=== PATIENT | female | born 1995 | race Caucasian/White ===

== ENCOUNTER 2018-01-25 12:36 | Outpatient (REF) | payer MEDICAID, SELFPAY ==
[2018-01-25 13:55] LABS: *AMPHETAMINES SCREEN URINE Negative (Negative); *BARBITURATES SCREEN URINE Negative (Negative); *BENZODIAZEPINES SCREEN URINE Negative (Negative); Cannabinoids THC Negative (Negative); Cocaine Screen,Urine Negative (Negative); METHADONE URINE SCREEN Negative (Negative); OPIATES URINE SCREEN Negative (Negative)
[2018-01-25 13:59] LABS: Tricyclic Antidepressants Negative (Negative)
[2018-01-29 03:39] LABS: Buprenorphine Negative; Norbuprenorphine Negative
== END 2018-01-25 12:56 ==
LOC: LBN 12:36
PROVIDERS: PCP Nurse Practitioner Family; Visit Provider Advanced Practice Midwife
DX: Z34.91 Encounter for supervision of normal pregnancy, unspecified, first trimester (principal)
CPT/HCPCS: 80307; 87086

== ENCOUNTER 2018-01-26 11:02 | Outpatient (CLI) | payer MEDICAID, SELFPAY ==
[2018-01-26 11:39] LABS: HCT 35.7 % (36.0-46.0); HGB 12.1 g/dL (12.0-15.5); Mean Corp. HGB Concentration 33.9 g/dL (32.0-36.0); Mean Corpuscular Hemoglobin 28.9 pg (27.0-33.0); Mean Corpuscular Volume 85.4 fL (80-95); Mean Platelet Volume 10.9 fL (8.0-11.0); Platelet Count 248 x1000/uL (130-400); RBC 4.18 m/cumm (4.00-5.20); RBC Distribution Width 14.3 % (11.7-14.6); White Blood Cell Count 7.47 k/cumm (4.4-10.8)
[2018-01-26 11:49] LABS: Glucose,1 Hr (Glucola) 95 mg/dL (80-140)
[2018-01-26 13:02] LABS: FREE T4 0.84 ng/dL (0.76-1.46)
[2018-01-27 10:18] LABS: Hepatitis B Surface Ag Negative (NEGAT)
[2018-01-27 10:35] LABS: Hepatitis C Ab w Rflx HCV PCR Negative (NEGAT)
[2018-01-27 13:58] LABS: Syphilis Serology (RPR) Negative (Negative)
[2018-01-27 14:01] LABS: Rubella IgG Ab (UVM) Positive; Varicella IgG Antibody Negative
[2018-01-28 10:27] LABS: HIV-1/2 Ag & Ab Screen Negative (NEGAT)
== END 2018-01-26 11:22 ==
PROVIDERS: Obstetrics & Gynecology; Obstetrics & Gynecology Gynecology; PCP Nurse Practitioner Family; Visit Provider Advanced Practice Midwife
DX: Z34.91 Encounter for supervision of normal pregnancy, unspecified, first trimester (principal); Z11.59 Encounter for screening for other viral diseases; Z11.4 Encounter for screening for human immunodeficiency virus [HIV]; Z11.3 Encounter for screening for infections with a predominantly sexual mode of transmission; Z01.84 Encounter for antibody response examination
CPT/HCPCS: 36415; 82950; 85027; 86787; 86803; 86850; 86900; 86901; 87340; 87389; 84439; 84443; 86592; 86762

== ENCOUNTER 2018-02-27 15:17 | Outpatient (REF) | payer MEDICAID, SELFPAY ==
[2018-02-28 15:21] LABS: Chlamydia Result Negative; GC Result Negative; Specimen Description URINE
== END 2018-02-27 15:37 ==
LOC: LBN 15:17
PROVIDERS: PCP Nurse Practitioner Family; Visit Provider Advanced Practice Midwife
DX: Z34.91 Encounter for supervision of normal pregnancy, unspecified, first trimester (principal); Z11.3 Encounter for screening for infections with a predominantly sexual mode of transmission
CPT/HCPCS: 87491; 87591

== ENCOUNTER 2018-03-10 01:17 | Outpatient (CLI) | payer MEDICAID, SELFPAY ==
--- NOTE | 2018-03-10 12:58 | DI.US_ITS ---
Many abnormalities cannot be diagnosed. A normal exam does not exclude a congenital anomaly. Radiology No. LMP: Exam Date: 03/10/18 [facility] wks days on EDC ([facility]) 08/11/18 Confirmed: HISTORY: SURVEY, Z34.90 ---- PREDICTED GESTATIONAL AGE NUMBER 18.0 weeks with a range of 17.0 week to 19.0 weeks. 1 Determined by___1STUS___LMP_X__HISTORY Info. pertaining to fetus # PLACENTA PRESENTATION Grade I Cephalic___ Anterior___Posterior_X__ Breech____ Right Left Transverse(head right___ Fundal___Low-lying___Previa___ Transverse(head left___ Varying__X____ BIOMETRY AMNIOTIC FLUID BPD: 41 mm 18.3 weeks Normal HC: 155 mm 18.3 weeks AC: 125 mm 18.1 weeks FL: 27 mm 18.1 weeks AMNIOTIC FLUID INDEX >26 WK CRL: mm weeks Cisterna Magna: 5 mm CI: 79 RUQ: LUQ Cerebellum: 1.8 cm EFW: 227 grams Percentile RLQ: LLQ Total: cms Composite AGE= 18.2 wks EDC by US____08/09/18 BIOPHYSICAL PROFILE ANATOMY IDENTIFIED SCORE 0/2 Heart: 4-Chamber__X_Rate:BPM___150__ LVOT: X____ RVOT: X__ Amniotic Fluid(>2cms)____ Stomach:___X____ Kidneys: X__ Respirations (>30 secs) Bladder:____X____ Post. Fossa: X Body Flex/Extension 3 vessel cord:____X___Ventricles: X cord insertion:___X__ Lips:__X__ Extremity Flex/Extension spinal morphology: X___Nose:X Total Score= Palate:___X____ NS=not seen There is a single living intrauterine gestation. Estimated sonographic age is 18 weeks 2 days. No abnormalities were identified. The fetus was in varying positions during the examination. heart rate is 150 beats per minute. Amniotic fluid index is within normal limits visually. The placenta is posterior without evidence of previa. Note is made of maternal lakes within the placenta. IMPRESSION: Single living intrauterine gestation. Estimated sonographic age is 18 weeks 2 days.
== END 2018-03-10 01:37 ==
PROVIDERS: PCP Nurse Practitioner Family; Visit Provider Advanced Practice Midwife
DX: Z34.92 Encounter for supervision of normal pregnancy, unspecified, second trimester (principal)
CPT/HCPCS: 76805

== ENCOUNTER 2018-05-23 10:24 | Outpatient (CLI) | payer MEDICAID, SELFPAY ==
[2018-05-23 11:09] LABS: Glucose,1 Hr (Glucola) 130 mg/dL (80-140)
[2018-05-23 11:27] LABS: HCT 32.6 % (36.0-46.0); HGB 10.8 g/dL (12.0-15.5); Mean Corp. HGB Concentration 33.1 g/dL (32.0-36.0); Mean Corpuscular Hemoglobin 29.4 pg (27.0-33.0); Mean Corpuscular Volume 88.8 fL (80-95); Mean Platelet Volume 11.3 fL (8.0-11.0); Platelet Count 267 x1000/uL (130-400); RBC 3.67 m/cumm (4.00-5.20); White Blood Cell Count 14.65 k/cumm (4.4-10.8)
== END 2018-05-23 10:44 ==
PROVIDERS: PCP Nurse Practitioner Family; Visit Provider Advanced Practice Midwife
DX: Z34.93 Encounter for supervision of normal pregnancy, unspecified, third trimester (principal); Z01.84 Encounter for antibody response examination
CPT/HCPCS: 36415; 82950; 85027; 86850; 90384

== ENCOUNTER 2018-05-29 10:06 | Emergency (ER) | payer MEDICAID, SELFPAY ==
[2018-05-29 10:19] VITALS: BP 110/64; PULSE 115; RESP 18; TEMP 36.8; O2SAT 97
--- NOTE | 2018-05-29 10:25 | W.ED.GENAD ---
Discharge Plan Disposition Patient Disposition: HOME Condition: Improving Discharge Details Chief Complaint: FacialProb Clinical Impression: Cellulitis of face Primary Care Provider: None,None ED Provider: Jf Pennington Home Meds and New Rx's Prescriptions: New clindamycin HCl 300 mg capsule 300 mg PO TID Qty: 21 RF: 0 Continued prenat.vits,nori,sel-qyfz-nvvhc tablet 1 tab PO DAILY Qty: 90 RF: 3 RhoGAM Ultra-Filtered PLUS 1,500 unit (300 mcg) syringe 1,500 unit IM ONCE Qty: 1 RF: 0 ferrous gluconate [Ferate] 240 mg (27 mg iron) tablet 240 mg PO DAILY Qty: 90 RF: 1 Discharge Instructions Instructions: Cellulitis (ED) Additional Instructions: Please take antibiotics as prescribed. Apply warm, moist heat to area to speed healing. May use Tylenol if needed for discomfort. Return for worsening or any other acute concerns. Routine care with your TRANS ROUTER as scheduled. Medical Decision Making 23-year-old female who is 29 weeks presents with left facial swelling over 1 days time after being scratched in the face. She has evidence of developing cellulitis but not of abscess. Will place on clindamycin, patient stable for outpatient management. She may use heat to speed healing. She understands return precautions. HPI General Mode of arrival: ambulatory. Date/Time Provider Initiated Documentation: 05/29/18 10:08. Limitations to Documentation: no limitations. Information obtained by: patient. History of Present Illness 23 year old F presents to the emergency department with the chief complaint of Left facial swelling times 1 day, began after scratch, described as moderate, Quality is described as aching, and is localized to the face and left. Patient reports no radiation. Patient started experiencing this hour(s) and it has been constant. No relieving factors improve symptom(s), No exacerbating factors reported . Patient notes no other symptoms.; denies fever/chills. Patient did receive the following treatments prior to arrival, none Related Data Home Medications Medication Instructions Recorded Confirmed 1 tab PO DAILY #90 tab 12/15/17 05/23/18 vitamin,calcium,nyfpmwld-zfdo-hcsxn acid tablet ferrous gluconate 240 mg (27 mg 240 mg PO DAILY #90 tab 05/23/18 05/23/18 iron) tablet clindamycin HCl 300 mg PO TID #21 cap 05/29/18 Previous Rx's Medication Instructions Recorded 1 tab PO DAILY #90 tab 12/15/17 vitamin,calcium,gslkudkb-vhgm-asvlj acid tablet ferrous gluconate 240 mg (27 mg 240 mg PO DAILY #90 tab 05/23/18 iron) tablet clindamycin HCl 300 mg PO TID #21 cap 05/29/18 Allergies Allergy/AdvReac Type Severity Reaction Status Date / Time Penicillins Allergy Severe Anaphylaxsi Unverified 05/23/18 10:59 s strawberry Allergy Intermediate Swelling/Ed Unverified 05/29/18 10:21 winter General Stated Complaint: FacialProb FERDINAND: 3 Review of Systems Review of Systems 6 systems reviewed and otherwise neg [facility] Medical History ADHD (attention deficit hyperactivity disorder) bipolar Surgical History section (04/08/17) Tonsillectomy Family History Grandmother Neoplasm Mother Heart disease Brother No problems noted. Social History Smoking and Tabacco status: Current every day (1 ppd, declines cessation assistance) alcohol intake: former substance use type: does not use Female Reproductive History Menstrual control method: pills History History 2 Para 1 Hx # Term Pregnancies 1 Multiple births 0 Hx # Pregnancies 0 Ectopic pregnancies 0 AB induced 0 Hx Number of Living Children 1 AB spontaneous 0 Exam Narrative Exam Narrative: GEN: awake, alert, oriented 3. Pleasant, well groomed, interactive. HEAD: Normocephalic, atraumatic ENT: Mucous membranes moist, oropharynx unremarkable, External ear exam unremarkable. Left nasal labial fold tender with discrete area of discomfort. No significant fluctuance. No overlying erythema EYES: PERRL, EOMI NECK: Full ROM, no SHAY, no menigismus CHEST/RESP: Nontender, clear to auscultation bilateral, no wheeze/rhonchi/rales CARDIOVASCULAR: RRR, no murmur, rub emilia. 2+ Rad pulse bilateral ABDOMEN: Soft, nontender, gravid. +Bowel sounds EXT: Full ROM, no edema, no rash Neuro: Grossly normal neurologic exam, conversant, interactive. Psych: Speech fluent, thoughts congruent, affect normal Course Vital Signs Temperature 36.8 C 05/29/18 10:19 Pulse 115 H 05/29/18 10:19 Respiratory Rate 18 05/29/18 10:19 Blood Pressure 110/64 05/29/18 10:19 Pulse Oximetry 97 05/29/18 10:19 Temperature 36.8 C 05/29/18 10:19 Temperature Source Skin 05/29/18 10:19 Pulse 115 H 05/29/18 10:19 Respiratory Rate 18 05/29/18 10:19 Blood Pressure 110/64 05/29/18 10:19 Pulse Oximetry 97 05/29/18 10:19 Oxygen Delivery Method Room Air 05/29/18 10:19 Oxygen Flow Rate 0 05/29/18 10:19 Pain Level 9 05/29/18 10:19
--- NOTE | 2018-05-29 10:28 | ED.GENADUL_ITS ---
Discharge Plan Disposition Patient Disposition: HOME Condition: Improving Discharge Details Chief Complaint: FacialProb Clinical Impression: Cellulitis of face Primary Care Provider: None,None ED Provider: Jf Pennington Home Meds and New Rx's Prescriptions: New clindamycin HCl 300 mg capsule 300 mg PO TID Qty: 21 RF: 0 Continued prenat.vits,nori,qiu-vmkc-edpvf tablet 1 tab PO DAILY Qty: 90 RF: 3 RhoGAM Ultra-Filtered PLUS 1,500 unit (300 mcg) syringe 1,500 unit IM ONCE Qty: 1 RF: 0 ferrous gluconate [Ferate] 240 mg (27 mg iron) tablet 240 mg PO DAILY Qty: 90 RF: 1 Discharge Instructions Instructions: Cellulitis (ED) Additional Instructions: Please take antibiotics as prescribed. Apply warm, moist heat to area to speed healing. May use Tylenol if needed for discomfort. Return for worsening or any other acute concerns. Routine care with your [employer]BILE [employer] CUSTOMIZER as scheduled. Medical Decision Making 23-year-old female who is 29 weeks presents with left facial swelling over 1 days time after being scratched in the face. She has evidence of developing cellulitis but not of abscess. Will place on clindamycin, patient stable for outpatient management. She may use heat to speed healing. She understands return precautions. HPI General Mode of arrival: ambulatory . Date/Time Provider Initiated Documentation: 05/29/18 10:08 . Limitations to Documentation: no limitations . Information obtained by: patient . History of Present Illness 23 year old F presents to the emergency department with the chief complaint of Left facial swelling times 1 day, began after scratch, described as moderate, Quality is described as aching, and is localized to the face and left. Patient reports no radiation. Patient started experiencing this hour(s) and it has been constant. No relieving factors improve symptom(s), No exacerbating factors reported . Patient notes no other symptoms.; denies fever/chills. Patient did receive the following treatments prior to arrival, none Related Data Home Medications Medication Instructions Recorded Confirmed 1 tab PO DAILY #90 tab 12/15/17 05/23/18 vitamin,calcium,uswkodzp-igkm-agnlv acid tablet ferrous gluconate 240 mg (27 mg 240 mg PO DAILY #90 tab 05/23/18 05/23/18 iron) tablet clindamycin HCl 300 mg PO TID #21 cap 05/29/18 Previous Rx's Medication Instructions Recorded 1 tab PO DAILY #90 tab 12/15/17 vitamin,calcium,shwshayq-tcve-fuzku acid tablet ferrous gluconate 240 mg (27 mg 240 mg PO DAILY #90 tab 05/23/18 iron) tablet clindamycin HCl 300 mg PO TID #21 cap 05/29/18 Allergies Allergy/AdvReac Type Severity Reaction Status Date / Time Penicillins Allergy Severe Anaphylaxsi Unverified 05/23/18 10:59 s strawberry Allergy Intermediate Swelling/Ed Unverified 05/29/18 10:21 winter General Stated Complaint: FacialProb FERDINAND: 3 Review of Systems Review of Systems 6 systems reviewed and otherwise neg [facility] Medical History ADHD (attention deficit hyperactivity disorder) bipolar Surgical History section (04/08/17) Tonsillectomy Family History Grandmother Neoplasm Mother Heart disease Brother No problems noted. Social History Smoking and Tabacco status: Current every day (1 ppd, declines cessation assistance) alcohol intake: former substance use type: does not use Female Reproductive History Menstrual control method: pills History History 2 Para 1 Hx # Term Pregnancies 1 Multiple births 0 Hx # Pregnancies 0 Ectopic pregnancies 0 AB induced 0 Hx Number of Living Children 1 AB spontaneous 0 Exam Narrative Exam Narrative: GEN: awake, alert, oriented 3. Pleasant, well groomed, inte ractive. HEAD: Normocephalic, atraumatic ENT: Mucous membranes moist, oropharynx unremarkable, External ear exam unremarkable. Left nasal labial fold tender with discrete area of discomfort. No significant fluctuance. No overlying erythema EYES: PERRL, EOMI NECK: Full ROM, no SHAY, no menigismus CHEST/RESP: Nontender, clear to auscultation bilateral, no wheeze/rhonchi/rales CARDIOVASCULAR: RRR, no murmur, rub emilia. 2+ Rad pulse bilateral ABDOMEN: Soft, nontender, gravid. +Bowel sounds EXT: Full ROM, no edema, no rash Neuro: Grossly normal neurologic exam, conversant, interactive. Psych: Speech fluent, thoughts congruent, affect normal Course Vital Signs Temperature 36.8 C 05/29/18 10:19 Pulse 115 H 05/29/18 10:19 Respiratory Rate 18 05/29/18 10:19 Blood Pressure 110/64 05/29/18 10:19 Pulse Oximetry 97 05/29/18 10:19 Temperature 36.8 C 05/29/18 10:19 Temperature Source Skin 05/29/18 10:19 Pulse 115 H 05/29/18 10:19 Respiratory Rate 18 05/29/18 10:19 Blood Pressure 110/64 05/29/18 10:19 Pulse Oximetry 97 05/29/18 10:19 Oxygen Delivery Method Room Air 05/29/18 10:19 Oxygen Flow Rate 0 05/29/18 10:19 Pain Level 9 05/29/18 10:19
== END 2018-05-29 10:34 | disposition home or self-care (01) ==
PROVIDERS: Emergency Provider Emergency Medicine
DX: S00.81XA Abrasion of other part of head, initial encounter (principal); X58.XXXA Exposure to other specified factors, initial encounter; L03.211 Cellulitis of face; Z33.1 Pregnant state, incidental; Z3A.29 29 weeks gestation of pregnancy; O99.333 Smoking (tobacco) complicating pregnancy, third trimester; F17.210 Nicotine dependence, cigarettes, uncomplicated
CPT/HCPCS: 99283

== ENCOUNTER 2018-05-31 14:12 | Emergency (ER) | payer MEDICAID, SELFPAY ==
[2018-05-31 14:15] VITALS: BP 115/59; PULSE 133; RESP 20; TEMP 36.4; O2SAT 100
--- NOTE | 2018-05-31 14:35 | W.ED.GENAD ---
Discharge Plan Disposition Patient Disposition: HOME Condition: Improving Discharge Details Chief Complaint: Cellulitis Clinical Impression: Dental abscess Primary Care Provider: None,None ED Provider: German Alfredo Home Meds and New Rx's Prescriptions: New clindamycin HCl [Cleocin HCl] 150 mg capsule 150 mg PO TID Qty: 15 RF: 0 Continued RhoGAM Ultra-Filtered PLUS 1,500 unit (300 mcg) syringe 1,500 unit IM ONCE Qty: 1 RF: 0 ferrous gluconate [Ferate] 240 mg (27 mg iron) tablet 240 mg PO DAILY Qty: 90 RF: 1 clindamycin HCl 300 mg capsule 300 mg PO TID Qty: 21 RF: 0 Discharge Instructions Instructions: Dental Abscess (ED) Additional Instructions: If you note any worsening of symptoms you should return immediately to the emergency department otherwise if you do not see any signs of improvement after 48 hours you should also return for reassessment.. Take your antibiotic as prescribed and until they are fully gone. Please use salt water gargles and rinses 4 times a day for the next 3 days and follow-up with a dentist within the next week for reassessment. Referrals: Primary Care Provider [Outside] (If you are unable to follow-up with a dentist in the next week please follow-up with your primary care provider for reassessment) Medical Decision Making Patient presenting the emergency department for chief complaint of facial swelling. Patient states that this started 3 days ago and was seen in the emergency department. At that time she was diagnosed with facial cellulitis placed on clindamycin. Patient states over the last 24 hours that she has had significant worsening of pressure and swelling to her face. She does state some associated dental pain. Upon physical exam patient has significant swelling to the left upper lip and fluctuant erythema at the base of tooth #10 with dental fracture. Patient is afebrile otherwise stable in appearance the does seem anxious and in discomfort. Patient is at this time. Patient states that she has been taking her clindamycin as prescribed. I did use bedside ultrasound and was able to identify abscess. Patient consented to needle aspiration of the area. Patient was offered and discussed risk versus benefit of topical benzocaine along with lidocaine injection and patient stated that she would prefer not to have any anesthetic and to be only poked with a needle one time. Patient does understand that this will be painful. Patient was able to tolerate the procedure appropriately with complications of pain and bleeding otherwise unremarkable. Was able to aspirate 1 mL of purulent drainage and after procedure patient did state improvement of discomfort and feeling of pressure. Patient's clindamycin dose was increased to 450 mg 3 times daily. Return precautions were discussed. Patient encouraged to continue to use acetaminophen as needed for pain. After discussion of diagnosis and plan of care patient has no further needs, questions, or concerns and states clear understanding to return to the emergency department for any worsening symptoms. HPI General Mode of arrival: ambulatory. Date/Time Provider Initiated Documentation: 05/31/18 14:17. Limitations to Documentation: no limitations. Information obtained by: patient. History of Present Illness 23 year old F presents to the emergency department with the chief complaint of Dental pain, facial pain/swelling, described as severe, Quality is described as sharp, and is localized to the mouth. Patient started experiencing this day(s) (3) and it has been constant. No relieving factors improve symptom(s), Patient notes no other symptoms.. Patient did receive the following treatments prior to arrival, NSAID Related Data Home Medications Medication Instructions Recorded Confirmed ferrous gluconate 240 mg (27 mg 240 mg PO DAILY #90 tab 05/23/18 05/31/18 iron) tablet clindamycin HCl 300 mg PO TID #21 cap 05/29/18 05/31/18 clindamycin HCl [Cleocin HCl] 150 mg PO TID #15 cap 05/31/18 Previous Rx's Medication Instructions Recorded ferrous gluconate 240 mg (27 mg 240 mg PO DAILY #90 tab 05/23/18 iron) tablet clindamycin HCl 300 mg PO TID #21 cap 05/29/18 clindamycin HCl [Cleocin HCl] 150 mg PO TID #15 cap 05/31/18 Allergies Allergy/AdvReac Type Severity Reaction Status Date / Time Penicillins Allergy Severe Anaphylaxsi Unverified 05/31/18 14:20 s strawberry Allergy Intermediate Swelling/Ed Unverified 05/31/18 14:20 winter General Stated Complaint: Cellulitis FERDINAND: 3 Review of Systems Constitutional Denies chills and Denies fever(s) ENT Reports as per HPI, Denies change in voice, Reports dental pain, Denies dysphagia, Reports facial pain (swelling), Denies throat swelling and Denies tongue swelling Cardiovascular Denies chest pain and Denies dyspnea Respiratory Denies dyspnea, Denies stridor and Denies wheezing Gastrointestinal Denies abdominal pain, Denies dysphagia, Denies nausea and Denies vomiting Integumentary/Breasts Denies rash Allergic/Immunologic Denies throat swelling, Denies tongue swelling and Denies wheezing [facility] Medical History ADHD (attention deficit hyperactivity disorder) bipolar Surgical History section (04/08/17) Tonsillectomy Family History Grandmother Neoplasm Mother Heart disease Brother No problems noted. Social History Smoking and Tabacco status: Current every day alcohol intake: former substance use type: does not use Female Reproductive History Menstrual control method: pills History History 2 Para 1 Hx # Term Pregnancies 1 Multiple births 0 Hx # Pregnancies 0 Ectopic pregnancies 0 AB induced 0 Hx Number of Living Children 1 AB spontaneous 0 Exam Const General: cooperative Orientation: alert, awake and oriented x3 Limitations: mental status not altered HENDE Head: normal to inspection, normocephalic and atraumatic Ears: hearing grossly normal bilaterally, normal mastoids bilaterally and no periauricular adenopathy General nose exam: other (Swelling to base of left nare) Mouth: oropharynx normal, no drooling, no muffled voice, normal tongue and no trismus Teeth and gingiva: abnormal tooth or associated gingiva (Fractured tooth #10 with erythema and fluctuant around base), caries and poor dentition Throat: posterior oropharynx normal, tonsils normal and uvula midline Eyes General: appearance normal, both eyes and all related structures Pupils: PERRL Neck Neck: normal visual inspection, full ROM, no lymphadenopathy, no meningeal signs, trachea midline, supple, no anterior neck swelling and no midline deformity Resp Effort & Inspection: normal respiratory effort and able to speak in complete sentences Course Vital Signs Temperature 36.4 C L 05/31/18 14:15 Pulse 133 H 05/31/18 14:15 Respiratory Rate 20 05/31/18 14:15 Blood Pressure 115/59 L 05/31/18 14:15 Pulse Oximetry 100 05/31/18 14:15 Temperature 36.4 C L 05/31/18 14:15 Temperature Source Skin 05/31/18 14:15 Pulse 133 H 05/31/18 14:15 Respiratory Rate 20 05/31/18 14:15 Blood Pressure 115/59 L 05/31/18 14:15 Pulse Oximetry 100 05/31/18 14:15 Oxygen Delivery Method Room Air 05/31/18 14:15 Oxygen Flow Rate 0 05/31/18 14:15 Pain Level 10 05/31/18 14:15 Procedures Abscess I/D Site: Other (dental) Side (if applicable): Left Technique: Needle Aspiration Amount of fluid expressed (mL): 1 Irrigation: No Packing used?: None Complications: Bleeding
--- NOTE | 2018-05-31 14:42 | ED.GENADUL_ITS ---
Discharge Plan Disposition Patient Disposition: HOME Condition: Improving Discharge Details Chief Complaint: Cellulitis Clinical Impression: Dental abscess Primary Care Provider: None,None ED Provider: German Alfredo Home Meds and New Rx's Prescriptions: New clindamycin HCl [Cleocin HCl] 150 mg capsule 150 mg PO TID Qty: 15 RF: 0 Continued RhoGAM Ultra-Filtered PLUS 1,500 unit (300 mcg) syringe 1,500 unit IM ONCE Qty: 1 RF: 0 ferrous gluconate [Ferate] 240 mg (27 mg iron) tablet 240 mg PO DAILY Qty: 90 RF: 1 clindamycin HCl 300 mg capsule 300 mg PO TID Qty: 21 RF: 0 Discharge Instructions Instructions: Dental Abscess (ED) Additional Instructions: If you note any worsening of symptoms you should return immediately to the emergency department otherwise if you do not see any signs of improvement after 48 hours you should also return for reassessment.. Take your antibiotic as prescribed and until they are fully gone. Please use salt water gargles and rinses 4 times a day for the next 3 days and follow-up with a dentist within the next week for reassessment. Referrals: Primary Care Provider [Outside] (If you are unable to follow-up with a dentist in the next week please follow-up with your primary care provider for reassessment) Medical Decision Making Patient presenting the emergency department for chief complaint of facial swelling. Patient states that this started 3 days ago and was seen in the emergency department. At that time she was diagnosed with facial cellulitis placed on clindamycin. Patient states over the last 24 hours that she has had significant worsening of pressure and swelling to her face. She does state some associated dental pain. Upon physical exam patient has significant swelling to the left upper lip and fluctuant erythema at the base of tooth #10 with dental fracture. Patient is afebrile otherwise stable in appearance the does seem anxious and in discomfort. Patient is at this time. Patient states that she has been taking her clindamycin as prescribed. I did use bedside ultrasound and was able to identify abscess. Patient consented to needle aspiration of the area. Patient was offered and discussed risk versus benefit of topical benzocaine along with lidocaine injection and patient stated that she would prefer not to have any anesthetic and to be only poked with a needle one time. Patient does understand that this will be painful. Patient was able to tolerate the procedure appropriately with complications of pain and bleeding otherwise unremarkable. Was able to aspirate 1 mL of purulent drainage and after procedure patient did state improvement of discomfort and feeling of pressure. Patient's clindamycin dose was increased to 450 mg 3 times daily. Return precautions were discussed. Patient encouraged to continue to use acetaminophen as needed for pain. After discussion of diagnosis and plan of care patient has no further needs, questions, or concerns and states clear understanding to return to the emergency department for any worsening symptoms. HPI General Mode of arrival: ambulatory . Date/Time Provider Initiated Documentation: 05/31/18 14:17 . Limitations to Documentation: no limitations . Information obtained by: patient . History of Present Illness 23 year old F presents to the emergency department with the chief complaint of Dental pain, facial pain/swelling, described as severe, Quality is described as sharp, and is localized to the mouth. Patient started experiencing this day(s) (3) and it has been constant. No relieving factors improve symptom(s), Patient notes no other symptoms.. Patient did receive the following treatments prior to arrival, NSAID Related Data Home Medications Medication Instructions Recorded Confirmed ferrous gluconate 240 mg (27 mg 240 mg PO DAILY #90 tab 05/23/18 05/31/18 iron) tablet clindamycin HCl 300 mg PO TID #21 cap 05/29/18 05/31/18 clindamycin HCl [Cleocin HCl] 150 mg PO TID #15 cap 05/31/18 Previous Rx's Medication Instructions Recorded ferrous gluconate 240 mg (27 mg 240 mg PO DAILY #90 tab 05/23/18 iron) tablet clindamycin HCl 300 mg PO TID #21 cap 05/29/18 clindamycin HCl [Cleocin HCl] 150 mg PO TID #15 cap 05/31/18 Allergies Allergy/AdvReac Type Severity Reaction Status Date / Time Penicillins Allergy Severe Anaphylaxsi Unverified 05/31/18 14:20 s strawberry Allergy Intermediate Swelling/Ed Unverified 05/31/18 14:20 winter General Stated Complaint: Cellulitis FERDINAND: 3 Review of Systems Constitutional Denies chills and Denies fever(s) ENT Reports as per HPI, Denies change in voice, Reports dental pain, Denies dysphagia, Reports facial pain (swelling), Denies throat swelling and Denies tongue swelling Cardiovascular Denies chest pain and Denies dyspnea Respiratory Denies dyspnea, Denies stridor and Denies wheezing Gastrointestinal Denies abdominal pain, Denies dysphagia, Denies nausea and Denies vomiting Integumentary/Breasts Denies rash Allergic/Immunologic Denies throat swelling, Denies tongue swelling and Denies wheezing [facility] Medical History ADHD (attention deficit hyperactivity disorder) bipolar Surgical History section (04/08/17) Tonsillectomy Family History Grandmother Neoplasm Mother Heart disease Brother No problems noted. Social History Smoking and Tabacco status: Current every day alcohol intake: former substance use type: does not use Female Reproductive History Menstrual control method: pills History History 2 Para 1 Hx # Term Pregnancies 1 Multiple births 0 Hx # Pregnancies 0 Ectopic pregnancies 0 AB induced 0 Hx Number of Living Children 1 AB spontaneous 0 Exam Const General: cooperative Orientation: alert, awake and oriented x3 Limitations: mental status not altered HENMT Head: normal to inspection, normocephalic and atraumatic Ears: hearing grossly normal bilaterally, normal mastoids bilaterally and no periauricular adenopathy General nose exam: other (Swelling to base of left nare) Mouth: oropharynx normal, no drooling, no muffled voice, normal tongue and no t rismus Teeth and gingiva: abnormal tooth or associated gingiva (Fractured tooth #10 with erythema and fluctuant around base), caries and poor dentition Throat: posterior oropharynx normal, tonsils normal and uvula midline Eyes General: appearance normal, both eyes and all related structures Pupils: PERRL Neck Neck: normal visual inspection, full ROM, no lymphadenopathy, no meningeal signs, trachea midline, supple, no anterior neck swelling and no midline deformity Resp Effort & Inspection: normal respiratory effort and able to speak in complete sentences Course Vital Signs Temperature 36.4 C L 05/31/18 14:15 Pulse 133 H 05/31/18 14:15 Respiratory Rate 20 05/31/18 14:15 Blood Pressure 115/59 L 05/31/18 14:15 Pulse Oximetry 100 05/31/18 14:15 Temperature 36.4 C L 05/31/18 14:15 Temperature Source Skin 05/31/18 14:15 Pulse 133 H 05/31/18 14:15 Respiratory Rate 20 05/31/18 14:15 Blood Pressure 115/59 L 05/31/18 14:15 Pulse Oximetry 100 05/31/18 14:15 Oxygen Delivery Method Room Air 05/31/18 14:15 Oxygen Flow Rate 0 05/31/18 14:15 Pain Level 10 05/31/18 14:15 Procedures Abscess I/D Site: Other (dental) Side (if applicable): Left Technique: Needle Aspiration Amount of fluid expressed (mL): 1 Irrigation: No Packing used?: None Complications: Bleeding
[2018-05-31] MEDS: Acetaminophen 325 MG TAB 650 MG PO (15:10)
[2018-05-31] MEDS: Clindamycin 300 MG CAP (15:10)
[2018-05-31] MEDS: Clindamycin 150 MG CAP (15:10)
--- NOTE | 2018-05-31 15:12 | NUR.NOTE ---
SOFTWARE ANALYST drained abscess, patient tolerated it well. patient medicated per MD order Nursing Note:
== END 2018-05-31 15:20 | disposition home or self-care (01) ==
PROVIDERS: Emergency Provider Nurse Practitioner Family
DX: K04.7 Periapical abscess without sinus (principal)
CPT/HCPCS: 99283

== ENCOUNTER 2018-06-12 13:15 | Outpatient (CLI) | payer MEDICAID, SELFPAY ==
--- NOTE | 2018-06-12 13:15 | DI.US_ITS ---
SYMPTOMS/DIAGNOSIS: RIGHT CALF PAIN, M79.661, ? DVT, 31 WEEKS RIGHT LOWER EXTREMITY ULTRASOUND: The deep veins of the right lower extremity show normal compression, augmentation and color flow. There is no evidence of a deep venous thrombus in the right lower extremity. The saphenofemoral junction is well maintained. The visualized portions of the greater saphenous vein show normal color flow and compression. The right calf was evaluated sonographically. No suspicious cystic or solid masses are seen. A superficial vein in the region shows normal compression. IMPRESSION: No evidence of a right lower extremity deep venous thrombus.
== END 2018-06-12 13:35 ==
PROVIDERS: PCP Family Medicine; Visit Provider Advanced Practice Midwife
DX: M79.661 Pain in right lower leg (principal); Z34.93 Encounter for supervision of normal pregnancy, unspecified, third trimester
CPT/HCPCS: 93971

== ENCOUNTER 2018-06-16 14:16 | Emergency (ER) | payer MEDICAID, SELFPAY ==
[2018-06-16 14:21] VITALS: BP 108/63; PULSE 121; RESP 18; TEMP 37; O2SAT 97
[2018-06-16 14:30] VITALS: RESP 10
--- NOTE | 2018-06-16 14:44 | W.ED.GENAD ---
Discharge Plan Disposition Patient Disposition: HOME Condition: Improving Discharge Details Chief Complaint: Dizzy/Sync Clinical Impression: Peripheral vertigo Primary Care Provider: Sasha Lindsay ED Provider: Jf Pennington Home Meds and New Rx's Prescriptions: New meclizine 12.5 mg tablet 12.5 mg PO TID PRN (Reason: dizziness) Qty: 10 RF: 0 Continued prenat.vits,nori,koe-snnq-mhpac tablet 1 tab PO DAILY RF: 0 RhoGAM Ultra-Filtered PLUS 1,500 unit (300 mcg) syringe 1,500 unit IM ONCE Qty: 1 RF: 0 ferrous gluconate [Ferate] 240 mg (27 mg iron) tablet 240 mg PO DAILY Qty: 90 RF: 1 Discharge Instructions Instructions: Vertigo (ED) Additional Instructions: May use Benadryl 25 mg at bedtime to aid in decongestion as we discussed. May use the prescribed meclizine, if needed, for recurrent vertigo. No sudden movements of the head or bending over. Home to rest today with small, frequent sips of fluids to maintain hydration Continue your regular medications. Return if you develop a headache, fever, or any other acute concern. Medical Decision Making 23-year-old female presents from [facility] after she experienced brief and transient spinning/motion sensation while seated at her at home table. She had a screening examination performed with normal activity per report. She was referred to the ER. States she now feels improved. She has not had a headache. No recent fall or trauma. He has had a URI with some sinus congestion. On exam she has anterior congestion without evidence of acute otitis media. This is consistent with peripheral vertigo. Meclizine is tolerated in and I will prescribe her for this to be used PRN. She may also use Benadryl 1 tablet at nighttime as needed. Discussed with her return precautions. She is stable and appropriate for outpatient management. HPI General Mode of arrival: ambulatory. Date/Time Provider Initiated Documentation: 06/16/18 14:29. Limitations to Documentation: no limitations. Information obtained by: patient and family. History of Present Illness 23 year old F presents to the emergency department with the chief complaint of Transient dizziness at home. Recent URI., described as moderate, Quality is described as other (Spinning), and is localized to the head. Patient reports no radiation. Patient started experiencing this minute(s) No relieving factors improve symptom(s), No exacerbating factors reported . Patient notes no other symptoms.; denies chest pain, nausea/vomiting and shortness of breath. Patient did receive the following treatments prior to arrival, none Related Data Home Medications Medication Instructions Recorded Confirmed ferrous gluconate 240 mg (27 mg 240 mg PO DAILY #90 tab 05/23/18 06/16/18 iron) tablet 1 tab PO DAILY 06/12/18 06/16/18 vitamin,calcium,vdphwqmp-fjrz-wlhya acid tablet meclizine 12.5 mg PO TID PRN #10 tab 06/16/18 Previous Rx's Medication Instructions Recorded ferrous gluconate 240 mg (27 mg 240 mg PO DAILY #90 tab 05/23/18 iron) tablet meclizine 12.5 mg PO TID PRN #10 tab 06/16/18 Allergies Allergy/AdvReac Type Severity Reaction Status Date / Time Penicillins Allergy Severe Anaphylaxsi Unverified 06/16/18 14:26 s strawberry Allergy Intermediate Swelling/Ed Unverified 06/16/18 14:26 winter General Stated Complaint: Dizzy/Sync FERDINAND: 3 Review of Systems Review of Systems 6 systems reviewed and otherwise neg PFSH Medical History ADHD (attention deficit hyperactivity disorder) bipolar Surgical History section (04/08/17) Tonsillectomy Family History Grandmother Neoplasm Mother Heart disease Brother No problems noted. Social History Smoking/Tobacco Use Status: Current every day Tobacco Type: cigarettes Alcohol Intake: never Drug use: Never Substance use type: does not use Do you feel safe at home: Yes Do you feel safe in your relationship?: Yes Female Reproductive History Menstrual control method: pills History History 2 Para 1 Hx # Term Pregnancies 1 Multiple births 0 Hx # Pregnancies 0 Ectopic pregnancies 0 AB induced 0 Hx Number of Living Children 1 AB spontaneous 0 Past Pregnancies Del. Date GA/Weeks # Outcome Route Wgt Sex Labor Lgth Anesthesia Location Prov Complic 04/08/17 38 Successful 2.665 kg Female [address] Bello did C/S Delivery Date: 04/08/17 On 01/25/18 @ 11:37 MerissaVera Spont labor, AROM, face presentation found at 7 cm, epidural attempted but didn't work, emergent C/S Exam Narrative Exam Narrative: GEN: awake, alert, oriented 3. Pleasant, well groomed, interactive. HEAD: Normocephalic, atraumatic ENT: Mucous membranes moist, oropharynx unremarkable, External ear exam unremarkable. Tympanic membranes fluid-filled without loss of light reflex bilaterally EYES: PERRL, EOMI NECK: Full ROM, no SHAY, no menigismus CHEST/RESP: Nontender, clear to auscultation bilateral, no wheeze/rhonchi/rales CARDIOVASCULAR: RRR pulse approximately 100 at time of the exam, no murmur, rub emilia. 2+ Rad pulse bilateral ABDOMEN: Soft, nontender, gravid EXT: Full ROM, no edema, no rash Neuro: Grossly normal neurologic exam, conversant, interactive. Psych: Speech fluent, thoughts congruent, affect normal Course Vital Signs Temperature 37 C 06/16/18 14:21 Pulse 121 H 06/16/18 14:21 Respiratory Rate 18 06/16/18 14:21 Blood Pressure 108/63 06/16/18 14:21 Pulse Oximetry 97 06/16/18 14:21 Temperature 37 C 06/16/18 14:21 Temperature Source Temporal Artery Scan 06/16/18 14:21 Pulse 121 H 06/16/18 14:21 Respiratory Rate 10 L 06/16/18 14:30 Respiratory Effort 06/16/18 14:30 Respiratory Depth Normal 06/16/18 14:30 Respiratory Pattern Normal 06/16/18 14:30 Blood Pressure 108/63 06/16/18 14:21 Blood Pressure Position Supine 06/16/18 14:21 Pulse Oximetry 97 06/16/18 14:21 Oxygen Delivery Method Room Air 06/16/18 14:21 Oxygen Flow Rate 0 06/16/18 14:21 Pain Level 0 06/16/18 14:21
--- NOTE | 2018-06-16 14:48 | ED.GENADUL_ITS ---
Discharge Plan Disposition Patient Disposition: HOME Condition: Improving Discharge Details Chief Complaint: Dizzy/Sync Clinical Impression: Peripheral vertigo Primary Care Provider: Sasha Lindsay ED Provider: Jf Pennington Home Meds and New Rx's Prescriptions: New meclizine 12.5 mg tablet 12.5 mg PO TID PRN (Reason: dizziness) Qty: 10 RF: 0 Continued prenat.vits,nori,pbq-kmht-vyuuc tablet 1 tab PO DAILY RF: 0 RhoGAM Ultra-Filtered PLUS 1,500 unit (300 mcg) syringe 1,500 unit IM ONCE Qty: 1 RF: 0 ferrous gluconate [Ferate] 240 mg (27 mg iron) tablet 240 mg PO DAILY Qty: 90 RF: 1 Discharge Instructions Instructions: Vertigo (ED) Additional Instructions: May use Benadryl 25 mg at bedtime to aid in decongestion as we discussed. May use the prescribed meclizine, if needed, for recurrent vertigo. No sudden movements of the head or bending over. Home to rest today with small, frequent sips of fluids to maintain hydration Continue your regular medications. Return if you develop a headache, fever, or any other acute concern. Medical Decision Making 23-year-old female presents from [facility] after she experienced brief and transient spinning/motion sensation while seated at her at home table. She had a screening examination performed with normal activity per report. She was referred to the ER. States she now feels improved. She has not had a headache. No recent fall or trauma. He has had a URI with some sinus congestion. On exam she has anterior congestion without evidence of acute otitis media. This is consistent with peripheral vertigo. Meclizine is tolerated in and I will prescribe her for this to be used PRN. She may also use Benadryl 1 tablet at nighttime as needed. Discussed with her return precautions. She is stable and appropriate for outpatient management. HPI General Mode of arrival: ambulatory . Date/Time Provider Initiated Documentation: 06/16/18 14:29 . Limitations to Documentation: no limitations . Information obtained by: patient and family . History of Present Illness 23 year old F presents to the emergency department with the chief complaint of Transient dizziness at home. Recent URI., described as moderate, Quality is described as other (Spinning), and is localized to the head. Patient reports no radiation. Patient started experiencing this minute(s) No relieving factors improve symptom(s), No exacerbating factors reported . Patient notes no other symptoms.; denies chest pain, nausea/vomiting and shortness of breath. Patient did receive the following treatments prior to arrival, none Related Data Home Medications Medication Instructions Recorded Confirmed ferrous gluconate 240 mg (27 mg 240 mg PO DAILY #90 tab 05/23/18 06/16/18 iron) tablet 1 tab PO DAILY 06/12/18 06/16/18 vitamin,calcium,vjstlrfr-anlx-ifdxv acid tablet meclizine 12.5 mg PO TID PRN #10 tab 06/16/18 Previous Rx's Medication Instructions Recorded ferrous gluconate 240 mg (27 mg 240 mg PO DAILY #90 tab 05/23/18 iron) tablet meclizine 12.5 mg PO TID PRN #10 tab 06/16/18 Allergies Allergy/AdvReac Type Severity Reaction Status Date / Time Penicillins Allergy Severe Anaphylaxsi Unverified 06/16/18 14:26 s strawberry Allergy Intermediate Swelling/Ed Unverified 06/16/18 14:26 winter General Stated Complaint: Dizzy/Sync FERDINAND: 3 Review of Systems Review of Systems 6 systems reviewed and otherwise neg PFSH Medical History ADHD (attention deficit hyperactivity disorder) bipolar Surgical History section (04/08/17) Tonsillectomy Family History Grandmother Neoplasm Mother Heart disease Brother No problems noted. Social History Smoking/Tobacco Use Status: Current every day Tobacco Type: cigarettes Alcohol Intake: never Drug use: Never Substance use type: does not use Do you feel safe at home: Yes Do you feel safe in your relationship?: Yes Female Reproductive History Menstrual control method: pills History History 2 Para 1 Hx # Term Pregnancies 1 Multiple births 0 Hx # Pregnancies 0 Ectopic pregnancies 0 AB induced 0 Hx Number of Living Children 1 AB spontaneous 0 Past Pregnancies Del. Date GA/Weeks # Outcome Route Wgt Sex Labor Lgth Anesthesia Location Prov Complic 04/08/17 38 Successful 2.665 kg Female [address] Bello did C/S Delivery Date: 04/08/17 On 01/25/18 @ 11:37 MerissaVera Spont labor, AROM, face presentation found at 7 cm, epidural attempted but didn't work, emergent C/S Exam Narrative Exam Narrative: GEN: awake, alert, oriented 3. Pleasant, well groomed, interactive. HEAD: Normocephalic, atraumatic ENT: Mucous membranes moist, oropharynx unremarkable, External ear exam unremarkable. Tympanic membranes fluid-filled without loss of light reflex bilaterally EYES: PERRL, EOMI NECK: Full ROM, no SHAY, no menigismus CHEST/RESP: Nontender, clear to auscultation bilateral, no wheeze/rhonchi/rales CARDIOVASCULAR: RRR pulse approximately 100 at time of the exam, no murmur, rub emilia. 2+ Rad pulse bilateral ABDOMEN: Soft, nontender, gravid EXT: Full ROM, no edema, no rash Neuro: Grossly normal neurologic exam, conversant, interactive. Psych: Speech fluent, thoughts congruent, affect normal Course Vital Signs Temperature 37 C 06/16/18 14:21 Pulse 121 H 06/16/18 14:21 Respiratory Rate 18 06/16/18 14:21 Blood Pressure 108/63 06/16/18 14:21 Pulse Oximetry 97 06/16/18 14:21 Temperature 37 C 06/16/18 14:21 Temperature Source Temporal Artery Scan 06/16/18 14:21 Pulse 121 H 06/16/18 14:21 Respiratory Rate 10 L 06/16/18 14:30 Respiratory Effort 06/16/18 14:30 Respiratory Depth Normal 06/16/18 14:30 Respiratory Pattern Normal 06/16/18 14:30 Blood Pressure 108/63 06/16/18 14:21 Blood Pressure Position Supine 06/16/18 14:21 Pulse Oximetry 97 06/16/18 14:21 Oxygen Delivery Method Room Air 06/16/18 14:21 Oxygen Flow Rate 0 06/16/18 14:21 Pain Level 0 06/16/18 14:21
== END 2018-06-16 14:54 | disposition home or self-care (01) ==
PROVIDERS: Emergency Provider Emergency Medicine; PCP Family Medicine
DX: H81.399 Other peripheral vertigo, unspecified ear (principal)
CPT/HCPCS: 99283

== ENCOUNTER 2018-06-25 18:17 | Observation (INO) | payer MEDICAID, SELFPAY ==
[2018-06-25 18:23] VITALS: BP 96/59; PULSE 124; RESP 16; TEMP 36.9; O2SAT 96
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
== END 2018-06-25 20:52 | disposition home or self-care (01) ==
LOC: ER 19:29 → OBS 19:29
PROVIDERS: Admitting Provider Obstetrics & Gynecology Gynecology; Emergency Provider Physician Assistant; PCP Family Medicine; Visit Provider Obstetrics & Gynecology Gynecology
DX: O9A.213 Injury, poisoning and certain other consequences of external causes complicating pregnancy, third trimester (principal); Z3A.33 33 weeks gestation of pregnancy; S39.91XA Unspecified injury of abdomen, initial encounter; W22.09XA Striking against other stationary object, initial encounter; Y08.89XA Assault by other specified means, initial encounter; Z59.0 Homelessness; Z63.72 Alcoholism and drug addiction in family; Z63.8 Other specified problems related to primary support group
CPT/HCPCS: 99285; 99284; G0378

== ENCOUNTER 2018-07-07 12:10 | Outpatient (REF) | payer MEDICAID, SELFPAY | END 2018-07-07 12:30 | LOC: LBN 12:10 | PROVIDERS: PCP Family Medicine; Visit Provider Obstetrics & Gynecology | DX: Z34.93 Encounter for supervision of normal pregnancy, unspecified, third trimester (principal); Z36.85 Encounter for antenatal screening for Streptococcus B | CPT/HCPCS: 87081 ==

== ENCOUNTER 2018-07-31 23:39 | Observation (INO) | payer MEDICAID, SELFPAY | END 2018-08-01 02:02 | disposition home or self-care (01) | LOC: OBS 23:43 | PROVIDERS: Admitting Provider Advanced Practice Midwife; PCP Family Medicine; Visit Provider Advanced Practice Midwife | DX: O47.1 False labor at or after 37 completed weeks of gestation (principal); O36.8130 Decreased fetal movements, third trimester, not applicable or unspecified; Z3A.38 38 weeks gestation of pregnancy; O34.211 Maternal care for low transverse scar from previous cesarean delivery; O26.893 Other specified pregnancy related conditions, third trimester; E86.0 Dehydration | CPT/HCPCS: 96360; G0378 ==

== ENCOUNTER 2018-08-03 15:56 | Observation (INO) | payer MEDICAID, SELFPAY ==
[2018-08-03 16:46] LABS: ROM Plus Negative
== END 2018-08-03 17:15 | disposition home or self-care (01) ==
PROVIDERS: Admitting Provider Obstetrics & Gynecology; PCP Family Medicine; Visit Provider Obstetrics & Gynecology
DX: O47.1 False labor at or after 37 completed weeks of gestation (principal); Z3A.38 38 weeks gestation of pregnancy
CPT/HCPCS: 84112; G0378

== ENCOUNTER 2018-08-08 09:44 | Outpatient (CLI) | payer MEDICAID, SELFPAY ==
[2018-08-08 10:46] LABS: HCT 34.1 % (36.0-46.0); HGB 11.2 g/dL (12.0-15.5); Mean Corp. HGB Concentration 32.8 g/dL (32.0-36.0); Mean Corpuscular Hemoglobin 27.7 pg (27.0-33.0); Mean Corpuscular Volume 84.2 fL (80-95); Mean Platelet Volume 11.7 fL (8.0-11.0); Platelet Count 286 x1000/uL (130-400); RBC 4.05 m/cumm (4.00-5.20); RBC Distribution Width 14.1 % (11.7-14.6)
== END 2018-08-08 10:04 ==
PROVIDERS: PCP Nurse Practitioner Adult Health; Visit Provider Obstetrics & Gynecology
DX: O34.211 Maternal care for low transverse scar from previous cesarean delivery (principal); Z01.818 Encounter for other preprocedural examination
CPT/HCPCS: 36415; 85027; 86850; 86900; 86901

== ENCOUNTER 2018-08-09 06:12 | Inpatient (IN) | payer MEDICAID, SELFPAY ==
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
[2018-08-09 06:15] VITALS: BP 121/75; PULSE 104; RESP 18; TEMP 36.4; O2SAT 97
[2018-08-09] MEDS: Lactated Ringers 1,000 ML 125 ML IV ×4 (06:55→17:47)
[2018-08-09] MEDS: CLINDAMYCIN 900 MG/50 ML BAG 50 MG IVPB (07:30)
--- NOTE | 2018-08-09 10:10 | ROE_ITS ---
REPORT OF OPERATIVE PROCEDURE DATE OF PROCEDURE August 09, 2018 PREOPERATIVE DIAGNOSIS Prior caesarean section. POSTOPERATIVE DIAGNOSIS Prior caesarean section. PROCEDURE Elective repeat caesarean section via low transverse incision. SURGEON Gayla Laboy M.D. [employer] Mame Bello M.D. ANESTHESIA Spinal. COMPLICATIONS None. ESTIMATED BLOOD LOSS 200 cc FLUIDS 1500 cc LR URINE OUTPUT 75 cc COMPLICATIONS None. FINDINGS Viable female infant, 7 pounds 8 ounces with Apgars 8 and 9. Normal uterus, tubes, ovaries. PROCEDURE DESCRIPTION The patient was taken to the Operating Room, where she was properly identified. She was then placed o n the Operating Table in the sitting position. Spinal anesthesia was induced without difficulty. She was then placed on the Operating Table in the dorsal supine position with a left lateral tilt. A Fole y catheter was placed. A Betadine vaginal prep was performed and her abdomen was prepped and draped i n the normal sterile fashion. SCDs boots were on; the patient was grounded on the left. After establi shing adequate spinal anesthesia, a Pfannenstiel incision was made along the old caesarean scar, driscoll ied down to the underlying fascia. The fascia was nicked in the midline. This was extended sharply bi laterally. The inferior aspect of the fascia was then grasped bilaterally with the Charlie clamps, te nted up and the rectus muscles dissected off sharply. Attention was then turned to the superior aspect. Again, in a similar fashion, it was grasped bilate rally with the Charlie clamps, tented up and the rectus muscles dissected off sharply. The rectus musc les were in the midline and the peritoneum was entered bluntly. This was extended superior and then inferiorly with good visualization of the bladder. The bladder blade was positioned. The v esicouterine peritoneum was grasped with a Pick- Up, tented up and entered sharply. The bladder flap was then created both digitally and sharply. The bladder blade was re-positioned and the lower uterin e segment was transversely incised to the underlying uterine cavity. The membranes were nicked. There was light meconium. The incision was extended manually. The infant's head was delivered atraumatical ly without nuchal cord. Shoulders and body followed with ease. The cord was clamped x2, cut and the handed off to the [facility]. There was a true knot in the umbilical cord. The placenta was manually expressed. The uterus exteriorized and cleared of all clots and debris. The uterus was closed with #0-Vicryl in a running locked fashion and a second imbricating layer was u sed to achieve hemostasis. The uterine incision was inspected and found to be hemostatic and the uter us was returned to the abdomen. The bladder blade was then positioned. The incision was re-inspected and found to be hemostatic. The peritoneum was closed with #2-0 Vicryl in a running fashion. The musc le was inspected and the subfascial area was inspected and found to be hemostatic. The fascia was jim sed from each apices with #0-Vicryl in a running fashion and tied in the midline. The subcuticular la mauro was closed with #3-0 plain, and the skin was closed with #4-0 Monocryl in a subcuticular fashion. Sponge, lap, needle, instrument counts were correct x2. The patient was taken to the recovery room in stable condition. [facility]
[2018-08-09] MEDS: Nalbuphine 10 MG/ML AMP SC (13:14)
[2018-08-09] MEDS: Normal Saline Flush 10 ML SYR IV (16:17)
[2018-08-09] MEDS: Ketorolac 30 MG/ML VIAL IVP ×2 (16:18→21:56)
[2018-08-10] MEDS: Lactated Ringers 1,000 ML 125 ML IV (01:00)
[2018-08-10] MEDS: Ketorolac 30 MG/ML VIAL IVP ×2 (04:00→10:30)
[2018-08-10 07:09] LABS: HCT 22.4 % (36.0-46.0); HGB 7.3 g/dL (12.0-15.5); Mean Corp. HGB Concentration 32.6 g/dL (32.0-36.0); Mean Corpuscular Hemoglobin 27.7 pg (27.0-33.0); Mean Corpuscular Volume 84.8 fL (80-95); Mean Platelet Volume 11.4 fL (8.0-11.0); Platelet Count 217 x1000/uL (130-400); RBC 2.64 m/cumm (4.00-5.20); RBC Distribution Width 13.7 % (11.7-14.6); White Blood Cell Count 19.87 k/cumm (4.4-10.8)
[2018-08-10] MEDS: Normal Saline Flush 10 ML SYR IV (10:30)
[2018-08-10] MEDS: oxyCODONE 5 mg/Acetaminophen 325 mg TAB PO ×2 (15:58→20:03)
[2018-08-11] MEDS: oxyCODONE 5 mg/Acetaminophen 325 mg TAB PO ×2 (01:50→08:47)
--- NOTE | 2018-08-11 08:29 | W.PM.PROGNOT ---
Date of Service Date of service: 08/11/18 Time of Service: 08:29 Assessment and Plan (1) S/P section: Current visit: Yes Status: Acute At the patient's request we will discharge her home today. Follow up in 1 week for incision check in the clinic. Subjective Interval history since last seen: Doing well this morning. Pain well controlled. Minimal lochia. Patient requests discharge home today. Exam GI Other: Incision is clean dry and intact. Objective Objective Clinical Data: Vital Signs Temperature 97.5 F L 08/09/18 06:15 Pulse 104 H 08/09/18 06:15 Respiratory Rate 18 08/09/18 06:15 Respiratory Effort Non-Labored 08/09/18 06:15 Respiratory Depth Normal 08/09/18 06:15 Respiratory Pattern Normal 08/09/18 06:15 Blood Pressure 121/75 08/09/18 06:15 Pulse Oximetry 97 08/09/18 06:15 Oxygen Delivery Method Room Air 08/09/18 06:15 Oxygen Flow Rate 0 08/09/18 06:15 Pain Level 5 08/11/18 02:50 Intake & Output 08/10/18 08/10/18 08/11/18 11:59 23:59 11:59 Intake Total 1420.833 / 1420.833 Balance 1420.833 / 1420.833 Intake: IV 1420.833 / 1420.833 Laboratory Results WBC 19.87 k/cumm (4.4-10.8) H 08/10/18 07:00 RBC 2.64 m/cumm (4.00-5.20) L 08/10/18 07:00 Hgb 7.3 g/dL (12.0-15.5) L D 08/10/18 07:00 Hct 22.4 % (36.0-46.0) L D 08/10/18 07:00 MCV 84.8 fL (80-95) 08/10/18 07:00 MCH 27.7 pg (27.0-33.0) 08/10/18 07:00 MCHC 32.6 g/dL (32.0-36.0) 08/10/18 07:00 RDW 13.7 % (11.7-14.6) 08/10/18 07:00 Plt Count 217 x1000/uL (130-400) 08/10/18 07:00 MPV 11.4 fL (8.0-11.0) H 08/10/18 07:00
== END 2018-08-11 11:20 | disposition home or self-care (01) | DRG 788 ==
LOC: PDS 06:12 → OBS 08:12
PROVIDERS: Admitting Provider Obstetrics & Gynecology; PCP Nurse Practitioner Adult Health; Visit Provider Obstetrics & Gynecology
PROC: 10D00Z1 Extraction of Products of Conception, Low, Open Approach (ICD-10-PCS; CPT 59514; principal; 2018-08-09 07:30)
DX: O34.211 Maternal care for low transverse scar from previous cesarean delivery (principal); Z37.0 Single live birth; O69.2XX0 Labor and delivery complicated by other cord entanglement, with compression, not applicable or unspecified; O77.0 Labor and delivery complicated by meconium in amniotic fluid; O99.344 Other mental disorders complicating childbirth; O99.334 Smoking (tobacco) complicating childbirth; Z3A.39 39 weeks gestation of pregnancy; F31.9 Bipolar disorder, unspecified; F17.210 Nicotine dependence, cigarettes, uncomplicated
CPT/HCPCS: 59514; 36415; 85027; NC; J1885; J2250; J2270; J2590; J3490

== ENCOUNTER 2018-09-12 15:48 | Outpatient (REF) | payer MEDICAID, SELFPAY ==
[2018-09-14 13:54] LABS: Chlamydia Result Negative; GC Result Negative; Specimen Description CERVIX
== END 2018-09-12 16:08 ==
LOC: LBN 15:48
PROVIDERS: PCP Nurse Practitioner Adult Health; Visit Provider Obstetrics & Gynecology Gynecology
DX: O86.12 Endometritis following delivery (principal); N93.9 Abnormal uterine and vaginal bleeding, unspecified; Z98.891 History of uterine scar from previous surgery; Z11.3 Encounter for screening for infections with a predominantly sexual mode of transmission
CPT/HCPCS: 87491; 87591; 87070; 87205

== ENCOUNTER 2018-10-26 17:35 | Emergency (ER) | payer MEDICAID, SELFPAY ==
[2018-10-26 17:37] VITALS: BP 114/64; PULSE 94; RESP 16; TEMP 36.7; O2SAT 99
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
== END 2018-10-26 19:17 | disposition home or self-care (01) ==
PROVIDERS: Emergency Provider Physician Assistant; PCP Nurse Practitioner Adult Health
DX: H60.501 Unspecified acute noninfective otitis externa, right ear (principal)
CPT/HCPCS: 99283

== ENCOUNTER 2018-10-27 02:38 | Emergency (ER) | payer MEDICAID, SELFPAY ==
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
[2018-10-27 02:44] VITALS: BP 105/78; PULSE 87; RESP 22; TEMP 36.7; O2SAT 100
--- NOTE | 2018-10-27 03:11 | NUR.NOTE ---
Error dental problem not ear infection Nursing Note:
[2018-10-27 03:13] VITALS: TEMP 36.7
[2018-10-27] MEDS: Benzocaine 20% Gel 30 GM JAR MM (03:13)
[2018-10-27] MEDS: Ketorolac 30 MG/ML VIAL IM (03:13)
[2018-10-27] MEDS: Amoxicillin 500 MG CAP PO (03:13)
== END 2018-10-27 03:25 | disposition home or self-care (01) ==
LOC: ER 03:22
PROVIDERS: Emergency Provider Emergency Medicine; PCP Nurse Practitioner Adult Health
DX: R68.84 Jaw pain; H92.01 Otalgia, right ear; K04.7 Periapical abscess without sinus
CPT/HCPCS: 96372; 99284; 99283; J1885

== ENCOUNTER 2018-11-22 19:33 | Emergency (ER) | payer MEDICAID, SELFPAY ==
[2018-11-22 19:35] VITALS: BP 116/59; PULSE 117; RESP 14; TEMP 36.7; O2SAT 98
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
[2018-11-22 20:23] VITALS: BP 116/59; PULSE 117; RESP 14; O2SAT 98
[2018-11-22] MEDS: Clindamycin 150 MG CAP 450 MG PO (20:23)
== END 2018-11-22 20:22 | disposition home or self-care (01) ==
PROVIDERS: Emergency Provider Student in an Organized Health Care Education/Training Program; PCP Nurse Practitioner Adult Health
DX: K04.7 Periapical abscess without sinus (principal)
CPT/HCPCS: 99283

== ENCOUNTER 2019-01-03 23:14 | Emergency (ER) | payer MEDICAID, SELFPAY ==
[2019-01-03 23:19] VITALS: BP 106/49; PULSE 121; RESP 19; TEMP 37.1; O2SAT 99
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
== END 2019-01-03 23:27 | disposition home or self-care (01) ==
LOC: ER 23:42
PROVIDERS: Emergency Provider Emergency Medicine; PCP Nurse Practitioner Adult Health
DX: M65.4 Radial styloid tenosynovitis [de Quervain]
CPT/HCPCS: 99282; L3807

== ENCOUNTER 2020-11-09 18:46 | Emergency (ER) | payer MEDICAID, SELFPAY ==
[2020-11-09 18:57] VITALS: BP 101/50; PULSE 112; RESP 16; TEMP 36.9; O2SAT 99
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
== END 2020-11-09 19:30 | disposition home or self-care (01) ==
PROVIDERS: Emergency Provider Physician Assistant; PCP Nurse Practitioner Adult Health
DX: M79.81 Nontraumatic hematoma of soft tissue (principal); M79.622 Pain in left upper arm
CPT/HCPCS: 99282

== ENCOUNTER 2021-04-17 16:33 | Emergency (ER) | payer MEDICAID, SELFPAY ==
[2021-04-17 16:36] VITALS: BP 113/60; PULSE 116; RESP 16; TEMP 37; O2SAT 97
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
[2021-04-17] MEDS: traMADol 50 MG TAB PO (16:51)
[2021-04-17] MEDS: Clindamycin 150 MG CAP 450 MG PO (16:52)
[2021-04-17] MEDS: Benzocaine 20% Gel 30 GM JAR MM (16:52)
[2021-04-17] MEDS: Clindamycin 150 MG CAP, 12 CAPS/BTL 450 MG PO (16:53)
== END 2021-04-17 17:00 | disposition home or self-care (01) ==
PROVIDERS: Emergency Provider Registered Nurse Emergency; PCP Nurse Practitioner Adult Health
DX: K02.9 Dental caries, unspecified (principal); R68.84 Jaw pain
CPT/HCPCS: 99283

== ENCOUNTER 2021-06-05 18:19 | Emergency (ER) | payer MEDICAID, SELFPAY ==
[2021-06-05 18:22] VITALS: BP 138/90; PULSE 92; RESP 18; TEMP 36.5; O2SAT 99
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
[2021-06-05] MEDS: Benzocaine 20% Gel 30 GM JAR MM (18:40)
[2021-06-05] MEDS: Clindamycin 150 MG CAP 450 MG PO (18:40)
[2021-06-05] MEDS: traMADol 50 MG TAB PO (18:40)
[2021-06-05] MEDS: Clindamycin 150 MG CAP, 12 CAPS/BTL 450 MG PO (18:41)
== END 2021-06-05 18:48 | disposition home or self-care (01) ==
PROVIDERS: Emergency Provider Registered Nurse Emergency; PCP Nurse Practitioner Adult Health
DX: R68.84 Jaw pain (principal); K02.9 Dental caries, unspecified
CPT/HCPCS: 99283

== ENCOUNTER 2021-06-17 12:04 | Emergency (ER) | payer MEDICAID, SELFPAY ==
[2021-06-17 12:08] VITALS: BP 147/89; PULSE 94; RESP 18; TEMP 37.1; O2SAT 98
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
[2021-06-17] MEDS: Benzocaine 20% Gel 30 GM JAR MM (12:43)
== END 2021-06-17 12:38 | disposition home or self-care (01) ==
PROVIDERS: Emergency Provider Physician Assistant; PCP Nurse Practitioner Adult Health
DX: R68.84 Jaw pain (principal); K02.9 Dental caries, unspecified; F17.210 Nicotine dependence, cigarettes, uncomplicated
CPT/HCPCS: 99283

== ENCOUNTER 2021-07-03 09:40 | Emergency (ER) | payer MEDICAID, SELFPAY ==
[2021-07-03 09:47] VITALS: BP 130/81; PULSE 115; RESP 20; TEMP 36.6; O2SAT 100
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
[2021-07-03] MEDS: Ibuprofen 600 MG TAB PO (10:10)
--- NOTE | 2021-07-03 10:39 | DI.RAD_ITS ---
Exam(s) XR KNEE LT 3V AP,LAT,VANCE EXAM: XR KNEE LT 3V AP,LAT,VANCE CLINICAL HISTORY: fall with knee trauma. TECHNIQUE: 2D digital imaging was performed of the left knee. Four images were obtained. AP, later al, and PA tunnel views were obtained. COMPARISON: No exams were available for comparison FINDINGS: BONES: No acute fracture is present. No bony destructive lesion is seen. JOINTS: The knee is normally aligned. No joint effusion is seen. SOFT TISSUE: Normal. IMPRESSION: Normal radiographs of the left knee. DATA REPOSITORY: RADIATION DOSE DELIVERED:
== END 2021-07-03 11:04 | disposition home or self-care (01) ==
PROVIDERS: Emergency Provider Nurse Practitioner Family; PCP Nurse Practitioner Adult Health
DX: S80.02XA Contusion of left knee, initial encounter (principal); W10.9XXA Fall (on) (from) unspecified stairs and steps, initial encounter
CPT/HCPCS: 73562; 81025; 99283

== ENCOUNTER 2021-08-17 15:47 | Emergency (ER) | payer MEDICAID, SELFPAY ==
[2021-08-17 15:54] VITALS: BP 130/87; PULSE 96; RESP 17; TEMP 36.8; O2SAT 99
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
[2021-08-17] MEDS: Bupivacaine 0.5% Pres-Free 30 ML VIAL IJ (16:19)
[2021-08-17] MEDS: Clindamycin 150 MG CAP 450 MG PO (16:25)
== END 2021-08-17 16:30 | disposition home or self-care (01) ==
PROVIDERS: Emergency Provider Emergency Medicine; PCP Nurse Practitioner Adult Health
DX: K08.89 Other specified disorders of teeth and supporting structures (principal)
CPT/HCPCS: 99283

== ENCOUNTER 2021-08-29 01:17 | Emergency (ER) | payer MEDICAID, SELFPAY ==
[2021-08-29 01:22] VITALS: BP 140/73; PULSE 115; RESP 18; TEMP 36.8; O2SAT 96
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
[2021-08-29] MEDS: Clindamycin 150 MG CAP, 12 CAPS/BTL 450 MG PO (01:42)
== END 2021-08-29 02:26 | disposition home or self-care (01) ==
PROVIDERS: Emergency Provider Student in an Organized Health Care Education/Training Program; PCP Nurse Practitioner Adult Health
DX: K04.7 Periapical abscess without sinus (principal); R22.0 Localized swelling, mass and lump, head
CPT/HCPCS: 99281; 99282

== ENCOUNTER 2021-08-29 19:02 | Emergency (ER) | payer MEDICAID, SELFPAY ==
[2021-08-29 19:54] VITALS: BP 118/74; PULSE 102; RESP 18; TEMP 36.8; O2SAT 97
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
== END 2021-08-29 20:20 | disposition home or self-care (01) ==
PROVIDERS: Emergency Provider Student in an Organized Health Care Education/Training Program; PCP Nurse Practitioner Adult Health
DX: K04.7 Periapical abscess without sinus (principal); K02.9 Dental caries, unspecified
CPT/HCPCS: 99281

== ENCOUNTER 2021-09-27 19:38 | Emergency (ER) | payer MEDICAID, SELFPAY ==
[2021-09-27 19:50] VITALS: BP 114/73; PULSE 111; RESP 18; TEMP 36.7; O2SAT 98
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
[2021-09-27] MEDS: Clindamycin 300 MG CAP PO (20:18)
[2021-09-27 20:26] VITALS: PULSE 102; RESP 18; O2SAT 99
[2021-09-27] MEDS: Clindamycin 150 MG CAP, 12 CAPS/BTL 450 MG PO (20:26)
== END 2021-09-27 20:28 | disposition home or self-care (01) ==
PROVIDERS: Emergency Provider Physician Assistant; PCP Nurse Practitioner Adult Health
DX: K04.7 Periapical abscess without sinus (principal)
CPT/HCPCS: 99283

== ENCOUNTER 2021-10-23 23:34 | Emergency (ER) | payer MEDICAID, SELFPAY ==
[2021-10-23 23:41] VITALS: BP 113/75; PULSE 74; RESP 16; TEMP 36.4; O2SAT 99
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
[2021-10-23] MEDS: Clindamycin 150 MG CAP, 12 CAPS/BTL 450 MG PO (23:52)
--- NOTE | 2021-10-30 13:58 | CMACTNOTE_ITS ---
- If Service Date Differs Date of service: 10/30/21 Time of Service: 13:58 Care Management Activity Note Ruth is seen in the ED for a toothache. ED provider requests that CM assist Ruth in obtaining an appointment at [facility] but [facility] does not offer dental services with the exception of wisdom tooth extraction. CM subsequently coordinates a referral to [facility] in [place], [place], to assist Ruth in obtaining an appointment with an oral surgeon.
== END 2021-10-23 23:54 | disposition home or self-care (01) ==
PROVIDERS: Emergency Provider Student in an Organized Health Care Education/Training Program; PCP Nurse Practitioner Adult Health
DX: S02.5XXA Fracture of tooth (traumatic), initial encounter for closed fracture (principal); K02.9 Dental caries, unspecified; F17.210 Nicotine dependence, cigarettes, uncomplicated; F17.290 Nicotine dependence, other tobacco product, uncomplicated; X58.XXXA Exposure to other specified factors, initial encounter
CPT/HCPCS: 99283; 99284

== ENCOUNTER 2021-12-14 21:08 | Emergency (ER) | payer MEDICAID, SELFPAY ==
[2021-12-14 21:17] VITALS: BP 115/84; PULSE 105; RESP 18; TEMP 36.8; O2SAT 100
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
[2021-12-14] MEDS: Ketorolac 30 MG/ML VIAL IM (22:24)
== END 2021-12-14 22:25 | disposition home or self-care (01) ==
PROVIDERS: Emergency Provider Nurse Practitioner Family; PCP Nurse Practitioner Adult Health
DX: K02.9 Dental caries, unspecified (principal); F17.210 Nicotine dependence, cigarettes, uncomplicated; F17.290 Nicotine dependence, other tobacco product, uncomplicated
CPT/HCPCS: 96372; 99284; J1885

== ENCOUNTER 2021-12-29 19:52 | Emergency (ER) | payer MEDICAID, SELFPAY ==
[2021-12-29 19:55] VITALS: BP 122/70; PULSE 111; RESP 16; TEMP 36.8; O2SAT 97
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
[2021-12-29] MEDS: Benzocaine 20% Gel 30 GM JAR MM (21:35)
== END 2021-12-29 21:38 | disposition home or self-care (01) ==
PROVIDERS: Emergency Provider Nurse Practitioner Family; PCP Nurse Practitioner Adult Health
DX: K02.9 Dental caries, unspecified (principal); F17.210 Nicotine dependence, cigarettes, uncomplicated; F17.290 Nicotine dependence, other tobacco product, uncomplicated
CPT/HCPCS: 99282

== ENCOUNTER 2022-06-05 22:57 | Emergency (ER) | payer MEDICAID, SELFPAY ==
[2022-06-05 22:31] VITALS: BP 123/70; PULSE 118; RESP 24; TEMP 36.6; O2SAT 100
--- NOTE | 2022-06-05 22:38 | DI.RAD_ITS ---
Exam(s) XR WRIST RT COMPLETE EXAM: XR WRIST RT COMPLETE CLINICAL HISTORY: right distal radius pain. TECHNIQUE: 2D digital imaging was performed. COMPARISON: No exams were available for comparison FINDINGS: 3 views No evidence of acute fracture or dislocation nor significant ulnar variance. Scaphoid and scapholuna te normal. Bone density normal. No osseous lesions. IMPRESSION: No acute osseous findings. DATA REPOSITORY: RADIATION DOSE DELIVERED:
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
[2022-06-05] MEDS: Ibuprofen 800 MG TAB PO (22:56)
--- NOTE | 2022-06-05 23:04 | DI.VRAD_ITS ---
PROCEDURE INFORMATION: Exam: XR Right Wrist Exam date and time: 06/05/2022 10:50 PM Age: 27 years old Clinical indication: Other: Right distal radius pain TECHNIQUE: Imaging protocol: Radiologic exam of the right wrist. Views: 3 or more views. COMPARISON: No relevant prior studies available. FINDINGS: Bones/joints: Normal. Soft tissues: Normal. IMPRESSION: No acute findings. Dictated and Authenticated by: Tu Azar MD. Ordering:ARAM Zayas MD
== END 2022-06-05 23:23 | disposition home or self-care (01) ==
LOC: ER 23:45
PROVIDERS: Emergency Provider Student in an Organized Health Care Education/Training Program; PCP Nurse Practitioner Adult Health
DX: S63.591A Other specified sprain of right wrist, initial encounter (principal); W01.0XXA Fall on same level from slipping, tripping and stumbling without subsequent striking against object, initial encounter
CPT/HCPCS: 29125; 99283; 73110

== ENCOUNTER 2023-01-05 18:52 | Emergency (ER) | payer MEDICAID, SELFPAY ==
[2023-01-05 18:56] VITALS: BP 115/95; PULSE 110; RESP 18; TEMP 36.7; O2SAT 100
[2023-01-05 19:13] VITALS: PULSE 90; RESP 20
--- NOTE | 2023-01-05 19:15 | DI.CT_ITS ---
Exam(s) CT NECK W EXAM: CT NECK W INDICATION: left dental pain, left anterior neck very TTP. COMPARISON: No exams were available for comparison TECHNIQUE: FINDINGS: VISUALIZED PARANASAL SINUSES: Unremarkable. NASOPHARYNX: Unremarkable ORODENTAL: Some dental caries bilaterally. No soft tissue abscess evident. OROPHARYNX: Unremarkable. No masses evident. HYPOPHARYNX: Unremarkable. Valleculae and epiglottis and aryepiglottic folds appear normal. VOCAL CORDS: Unremarkable. No masses evident. Subglottic airway appears unremarkable. THYROID GLAND: Unremarkable. Normal size and no obvious nodules. SALIVARY GLANDS: Unremarkable. No significant findings in the parotid and submandibular glands. LYMPH NODES: There is no adenopathy evident in the neck and supraclavicular regions. OTHER: There is an aberrant right subclavian artery and the left vertebral artery originates as an in dependent vessel off the aortic arch. VISUALIZED LUNG APICES: No significant findings. IMPRESSION: 1. Some dental caries noted but no evidence of soft tissue abscess. No adenopathy. 2. Incidentally noted is an aberrant right subclavian artery and independent origin of the left vert ebral artery off the aortic arch. 3. RADIATION DOSE DELIVERED: 249.7mGy.cm Total DLP DATA REPOSITORY: All CT scans at this facility are submitted to the National Radiology Data Registry (NRDR) Dose Index Registry (DIR) with the [employer] (ACR). RADIATION OPTIMIZATION: All CT scans at this facility use at least one of these dose optimization te chniques: automated exposure control; mA and/or kV adjustment per patient size (includes targeted exa ms where dose is matched to clinical indication); or iterative reconstruction.
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
[2023-01-05 19:43] LABS: Abs Immature Grans 0.04 10^3/uL (0.0-0.06); Absolute Basophil Count 0.04 10^3/uL (0.0-0.2); Absolute Eosinophil Count 0.14 10^3/uL (0.0-0.7); Absolute Lymphocyte Count 2.34 10^3/uL (1.2-3.4); Absolute Monocyte Count 0.69 10^3/uL (0.1-0.8); Absolute Neutrophil Count 6.86 10^3/uL (1.2-6.7); Basophils % 0.4; Eosinophils % 1.4; HCT 36.6 % (36.0-46.0); HGB 12.6 g/dL (11.2-15.7); Immature Grans % 0.4; Lymphocytes % 23.1; MCH 32.7 pg (27.0-33.0); MCHC 34.4 % (32.0-36.0); MCV 95 fL (80-95); MPV 9.4 fL (8.0-11.0); Monocytes % 6.8; Neutrophils % 67.9; Platelet Count 379 10^3/uL (130-400); RBC 3.85 10^6/uL (3.93-5.22); RDW 13.3 % (11.7-14.6); RDW-SD 47.3 fL; WBC 10.11 10^3/uL (4.4-10.8)
[2023-01-05] MEDS: Ketorolac 15 MG/ML VIAL IM (19:44)
[2023-01-05] MEDS: Acetaminophen 325 MG TAB 650 MG PO (19:44)
[2023-01-05 20:00] LABS: ALT 13 U/L (14-59); AST 9 U/L (15-37); Alkaline Phosphatase 67 U/L (46-116); Anion Gap 9.5 mmol/L (3-11); BUN 16 mg/dL (7-18); Bilirubin, Total 0.3 mg/dL (0.2-1.0); CO2 24.5 mmol/L (21.0-32.0); CREATININE 0.5 mg/dL (0.55-1.02); Calcium 9.3 mg/dL (8.5-10.1); Chloride 104 mmol/L (98-107); Glucose 114 mg/dL (74-106); Potassium 3.7 mmol/L (3.5-5.1); Sodium 138 mmol/L (136-145); Total Protein 7.6 g/dL (6.4-8.2)
[2023-01-05] MEDS: Omnipaque 350 MG/ML 100 ML BTL IJ (20:11)
[2023-01-05] MEDS: Normal Saline - Diluent 50 ML VIAL IJ (20:12)
--- NOTE | 2023-01-05 20:50 | DI.VRAD_ITS ---
PROCEDURE INFORMATION: Exam: CT Neck With Contrast Exam date and time: 01/05/2023 8:11 PM Age: 27 years old Clinical indication: Mass, lump, or swelling in neck and other: Left dental pain, left anterior neck very ttp TECHNIQUE: Imaging protocol: Computed tomography of the neck with contrast. Contrast material: 350; Contrast volume: 100 ml; Contrast route: INTRAVENOUS (IV); COMPARISON: CR CHEST 2 VIEWS PA,LAT 08/28/2017 1:14 PM FINDINGS: Pharynx: Unremarkable. No significant tonsillar enlargement. Larynx: Unremarkable. Epiglottis is normal. Prevertebral and retropharyngeal spaces: Unremarkable. Salivary glands: Normal. Glands are normal in size. Thyroid: Normal. No enlarged or calcified nodules. Lymph nodes: No adenopathy observed Trachea: Visualized trachea is unremarkable. Lungs: Unremarkable as visualized. Bones/joints: Dental abscesses noted bilaterally in the maxilla involving the lateral incisor teeth. Dental caries noted bilaterally No acute fracture. Soft tissues: Minimal swelling in the cheek tissues overlying the maxilla No significant soft tissue swelling. Aberrant right subclavian artery with normal left aortic arch is noted, a normal variant. IMPRESSION: Maxillary small dental abscesses as described with minimal overlying swelling. No definite subperiosteal abscess Normal variation as noted Dictated and Authenticated by: Adonay Robles MD. Ordering:ESSENCE Bailey MD
[2023-01-05] MEDS: metroNIDAZOLE 500 MG TAB PO (21:02)
[2023-01-05] MEDS: levoFLOXacin 500 MG, levoFLOXacin 250 MG 750 MG PO (21:02)
== END 2023-01-05 21:12 | disposition home or self-care (01) ==
PROVIDERS: Emergency Provider Student in an Organized Health Care Education/Training Program; PCP Nurse Practitioner Adult Health
DX: R68.84 Jaw pain (principal)
CPT/HCPCS: 70491; 80053; 81025; 96372; 99285; 85025; 99284; J1885; J3490

== ENCOUNTER 2023-01-08 17:16 | Emergency (ER) | payer MEDICAID, SELFPAY ==
[2023-01-08 17:27] VITALS: BP 113/70; PULSE 118; RESP 24; O2SAT 98
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
[2023-01-08] MEDS: Benzocaine 20% Gel 30 GM JAR MM (17:53)
[2023-01-08] MEDS: Ibuprofen 800 MG TAB PO (17:54)
[2023-01-08] MEDS: traMADol 50 MG TAB PO (17:54)
--- NOTE | 2023-01-09 15:39 | NUR.NOTE ---
Nursing Note: PT called regarding prescription she thought she was getting. Informed patient that what she rec'd in the ER was the only medication for her and she will need to call her dentist tomorrow morning
== END 2023-01-08 17:57 | disposition home or self-care (01) ==
PROVIDERS: Emergency Provider Registered Nurse Emergency; PCP Nurse Practitioner Adult Health
DX: K04.7 Periapical abscess without sinus (principal); F17.210 Nicotine dependence, cigarettes, uncomplicated; F17.290 Nicotine dependence, other tobacco product, uncomplicated
CPT/HCPCS: 99282; 99283

== ENCOUNTER 2023-03-01 08:00 | Emergency (ER) | payer MEDICAID, SELFPAY ==
[2023-03-01 08:02] VITALS: BP 106/60; PULSE 108; RESP 18; O2SAT 100
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
[2023-03-01] MEDS: oxyCODONE 5 MG TAB PO (08:19)
[2023-03-01] MEDS: Ketorolac 10 MG TAB PO (08:19)
[2023-03-01] MEDS: Acetaminophen 500 MG TAB 1000 MG PO (08:19)
== END 2023-03-01 08:21 | disposition home or self-care (01) ==
PROVIDERS: Emergency Provider Physician Assistant; PCP Nurse Practitioner Adult Health
DX: K08.89 Other specified disorders of teeth and supporting structures (principal); K04.7 Periapical abscess without sinus; F17.210 Nicotine dependence, cigarettes, uncomplicated
CPT/HCPCS: 99282

== ENCOUNTER 2023-03-08 01:31 | Emergency (ER) | payer MEDICAID, SELFPAY ==
[2023-03-08 01:34] VITALS: BP 143/92; PULSE 80; RESP 18; TEMP 36.4; O2SAT 98
[2023-03-08 01:43] VITALS: BP 140/88; PULSE 80; RESP 16; TEMP 36.4; O2SAT 98
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
[2023-03-08] MEDS: Ibuprofen 600 MG TAB PO (01:46)
== END 2023-03-08 01:47 | disposition home or self-care (01) ==
LOC: ER 01:52
PROVIDERS: Emergency Provider Emergency Medicine; PCP Nurse Practitioner Adult Health
DX: K08.89 Other specified disorders of teeth and supporting structures (principal); F17.210 Nicotine dependence, cigarettes, uncomplicated
CPT/HCPCS: 99282

== ENCOUNTER 2023-03-09 18:06 | Emergency (ER) | payer MEDICAID, SELFPAY ==
[2023-03-09 18:16] VITALS: BP 138/105; PULSE 110; RESP 20; TEMP 37; O2SAT 99
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
--- NOTE | 2023-03-09 18:30 | DI.CT_ITS ---
Exam(s) CT NECK W EXAM: CT NECK W CLINICAL HISTORY: dental pain, spreading to neck, swelling. TECHNIQUE: Imaging Protocol: Axial computed tomography images with coronal and sagittal reformatted images were created and reviewed CONTRAST MATERIAL: Intravenous: Omnipaque 350 Contrast volume:100 ml contrast COMPARISON: CT CT NECK W from 01/05/2023 FINDINGS: Parotids: Normal. Submandibular glands: Normal. Thyroid gland: Normal. Lymph nodes: There are scattered lymph nodes seen along the level one to level three all measuring le ss than 8 mm in short axis diameter which are physiologic in nature. Carotids arteries: No significant stenosis or dissection. Vertebral arteries: No significant stenosis or dissection. Aberrant right subclavian artery again noted. Soft tissues: The floor the mouth is unremarkable. The tonsils and adenoids are unremarkable. The epiglottis and vocal cords are within normal limits. Lungs: Images through both lung apices are unremarkable. Bones: Degenerative changes of the cervical spine. Dental: Multiple dental caries. Periapical lucencies of the bilateral maxillary incisors. No visibl e surrounding abscess. Visualized portions of the brain and orbits: Unremarkable. Sinuses and mastoids: Clear. IMPRESSION: Multiple dental caries. Periapical lucencies at the maxillary incisors. No abscess visible. RADIATION DOSE DELIVERED: Total DLP DATA REPOSITORY: All CT scans at this facility are submitted to the National Radiology Data Registry (NRDR) Dose Index Registry (DIR) with the [employer] (ACR). RADIATION OPTIMIZATION: All CT scans at this facility use at least one of these dose optimization te chniques: automated exposure control; mA and/or kV adjustment per patient size (includes targeted exa ms where dose is matched to clinical indication); or iterative reconstruction.
--- NOTE | 2023-03-09 18:43 | NUR.NOTE ---
Referral faxed to Care Management to help Pt establish a dentist. She is here for the 4th time for tooth pain.Nursing Note:
[2023-03-09 19:18] LABS: Abs Immature Grans 0.03 10^3/uL (0.0-0.06); Absolute Basophil Count 0.03 10^3/uL (0.0-0.2); Absolute Eosinophil Count 0.11 10^3/uL (0.0-0.7); Absolute Lymphocyte Count 2.25 10^3/uL (1.2-3.4); Absolute Monocyte Count 0.66 10^3/uL (0.1-0.8); Absolute Neutrophil Count 5.62 10^3/uL (1.2-6.7); Basophils % 0.3; Eosinophils % 1.3; HCT 40.8 % (36.0-46.0); HGB 13.7 g/dL (11.2-15.7); Immature Grans % 0.3; Lymphocytes % 25.9; MCH 31.7 pg (27.0-33.0); MCHC 33.6 % (32.0-36.0); MCV 94 fL (80-95); MPV 10.5 fL (8.0-11.0); Monocytes % 7.6; Neutrophils % 64.6; Platelet Count 325 10^3/uL (130-400); RBC 4.32 10^6/uL (3.93-5.22); RDW 11.8 % (11.7-14.6)
[2023-03-09] MEDS: HYDROcodone 10/Acetaminophen 325 TAB PO (19:18)
[2023-03-09] MEDS: methylPREDNISolone SUCC 125 MG VIAL IVP (19:18)
[2023-03-09] MEDS: diphenhydrAMINE 50 MG/ML VIAL 25 MG IVP (19:18)
[2023-03-09 19:33] LABS: ALT 16 U/L (14-59); AST 9 U/L (15-37); Albumin 4.6 g/dL (3.4-5.0); Alkaline Phosphatase 72 U/L (46-116); Anion Gap 10.8 mmol/L (3-11); BUN 14 mg/dL (7-18); Bilirubin, Total 0.2 mg/dL (0.2-1.0); CO2 25.2 mmol/L (21.0-32.0); CREATININE 0.5 mg/dL (0.55-1.02); Calcium 9.4 mg/dL (8.5-10.1); Chloride 103 mmol/L (98-107); Glucose 98 mg/dL (74-106); Potassium 3.8 mmol/L (3.5-5.1); Sodium 139 mmol/L (136-145); Total Protein 8.5 g/dL (6.4-8.2)
[2023-03-09] MEDS: Normal Saline - Diluent 50 ML VIAL IJ (19:35)
[2023-03-09] MEDS: Omnipaque 350 MG/ML 100 ML BTL IJ (19:36)
--- NOTE | 2023-03-09 20:02 | DI.VRAD_ITS ---
Addendum created by Cristopher Ramirez MD on 03/09/2023 8:04:52 PM EST: Periapical lucencies of the [id number]-left lateral maxillary incisors not appreciably changed without obvious periodontal abscess. Initial report created on 03/09/2023 8:02:09 PM EST: PROCEDURE INFORMATION: Exam: CT Neck With Contrast Exam date and time: 03/09/2023 7:30 PM Age: 27 years old Clinical indication: Neck pain and other: Dental pain spreading to neck; Patient HX: Dental pain spreading to neck, swelling TECHNIQUE: Imaging protocol: Computed tomography of the neck with contrast. Contrast material: OMNI 350; Contrast volume: 100 ml; Contrast route: INTRAVENOUS (IV); COMPARISON: CT NECK W 01/05/2023 8:11 PM FINDINGS: Pharynx: No significant tonsillar enlargement. No evidence of tonsillar/peritonsillar abscess. Larynx: Unremarkable. Epiglottis is normal. Prevertebral and retropharyngeal spaces: No evidence of retropharyngeal or prevertebral abscess. Salivary glands: Parotid and submandibular glands are symmetric and within normal limits. Thyroid: No discrete nodule or mass. Lymph nodes: No pathologically enlarged cervical or supraclavicular lymph nodes. Trachea: Visualized trachea is unremarkable. Lungs: Lung apices are clear. Bones/joints: No acute fracture. There is straightening of normal cervical lordosis which may be secondary to patient positioning versus muscle spasm. 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 Soft tissues: No obvious focal soft tissue inflammatory stranding or soft tissue fluid collection. IMPRESSION: No acute findings. Dictated and Authenticated by: Cristopher Ramirez MD. Ordering:NYLA Zayas MD
== END 2023-03-09 20:54 | disposition home or self-care (01) ==
PROVIDERS: Emergency Provider Physician Assistant; PCP Nurse Practitioner Adult Health
DX: R68.84 Jaw pain (principal); K08.9 Disorder of teeth and supporting structures, unspecified; K04.7 Periapical abscess without sinus; F17.200 Nicotine dependence, unspecified, uncomplicated
CPT/HCPCS: 70491; 80053; 96374; 96375; 99284; 85025; 99283; J1200; J2930; J3490

== ENCOUNTER 2023-05-03 20:39 | Emergency (ER) | payer MEDICAID, SELFPAY ==
[2023-05-03 20:43] VITALS: BP 126/80; PULSE 106; RESP 18; TEMP 36.8; O2SAT 99
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
[2023-05-03 20:59] VITALS: BP 126/80; PULSE 106; RESP 18; TEMP 36.8; O2SAT 99
[2023-05-03] MEDS: Acetaminophen 500 MG TAB 1000 MG PO (20:59)
[2023-05-03] MEDS: Lidocaine 2% Viscous 1 ML Solution 10 ML PO (20:59)
== END 2023-05-03 20:57 | disposition home or self-care (01) ==
PROVIDERS: Emergency Provider Emergency Medicine; PCP Nurse Practitioner Adult Health
DX: K03.81 Cracked tooth (principal); K02.9 Dental caries, unspecified; F17.210 Nicotine dependence, cigarettes, uncomplicated; F17.290 Nicotine dependence, other tobacco product, uncomplicated
CPT/HCPCS: 99283

== ENCOUNTER 2023-05-07 18:04 | Emergency (ER) | payer MEDICAID, SELFPAY ==
[2023-05-07 18:08] VITALS: BP 141/90; PULSE 115; RESP 18; TEMP 37.1; O2SAT 99
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
[2023-05-07] MEDS: Cyclobenzaprine 10 MG TAB PO (18:50)
[2023-05-07] MEDS: Acetaminophen 500 MG TAB 1000 MG PO (18:50)
[2023-05-07] MEDS: Meclizine 25 MG TAB PO (18:50)
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
[2023-05-07] MEDS: Cyclobenzaprine 10 MG TAB, 3 TABS/BTL PO (20:17)
[2023-05-07 20:20] VITALS: BP 112/68; PULSE 72; RESP 16; TEMP 36.9; O2SAT 98
== END 2023-05-07 20:20 | disposition home or self-care (01) ==
PROVIDERS: Emergency Provider Registered Nurse Emergency; PCP Nurse Practitioner Adult Health
DX: S16.1XXA Strain of muscle, fascia and tendon at neck level, initial encounter (principal); V43.92XA Unspecified car occupant injured in collision with other type car in traffic accident, initial encounter
CPT/HCPCS: 81025; 99284; 70450; 71046; 72125

== ENCOUNTER 2023-08-05 17:23 | Emergency (ER) | payer MEDICAID, SELFPAY ==
[2023-08-05 17:32] VITALS: BP 140/72; PULSE 105; RESP 16; TEMP 37; O2SAT 99
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
[2023-08-05] MEDS: Ibuprofen 600 MG TAB, 6 TABS/BTL PO (18:55)
[2023-08-05] MEDS: Ibuprofen 400 MG TAB 600 MG PO (18:55)
== END 2023-08-05 18:59 | disposition home or self-care (01) ==
PROVIDERS: Emergency Provider Nurse Practitioner Family; PCP Nurse Practitioner Adult Health
DX: M25.531 Pain in right wrist (principal); F17.210 Nicotine dependence, cigarettes, uncomplicated; F17.290 Nicotine dependence, other tobacco product, uncomplicated
CPT/HCPCS: 99283; 73110

== ENCOUNTER 2023-10-31 08:07 | Emergency (ER) | payer MEDICAID, SELFPAY ==
[2023-10-31 08:08] VITALS: BP 102/78; PULSE 98; RESP 15; TEMP 36.7; O2SAT 98
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
--- NOTE | 2023-10-31 08:30 | DI.RAD_ITS ---
Exam(s) XR FOOT RT COMPLETE EXAM: XR FOOT RT COMPLETE CLINICAL HISTORY: pain. TECHNIQUE: 2D digital imaging was performed. Three views. COMPARISON: No exams were available for comparison FINDINGS: BONES: No acute fracture is present. No bony destructive lesion is seen. JOINTS: No dislocation present. Hallux valgus. SOFT TISSUE: Normal. IMPRESSION: Hallux valgus. No acute abnormality. DATA REPOSITORY: RADIATION DOSE DELIVERED:
[2023-10-31] MEDS: Ketorolac 15 MG/ML VIAL IVP (09:26)
== END 2023-10-31 09:27 | disposition home or self-care (01) ==
PROVIDERS: Emergency Provider Emergency Medicine; PCP Nurse Practitioner Adult Health
DX: M79.671 Pain in right foot (principal); F17.210 Nicotine dependence, cigarettes, uncomplicated; F17.290 Nicotine dependence, other tobacco product, uncomplicated
CPT/HCPCS: 96374; 99284; 73630; 99283; J1885

== ENCOUNTER 2024-03-04 18:48 | Emergency (ER) | payer MEDICAID, SELFPAY ==
[2024-03-04 18:50] VITALS: BP 123/75; PULSE 95; RESP 16; TEMP 36.6; O2SAT 97
--- NOTE | 2024-03-04 20:00 | DI.RAD_ITS ---
Exam(s) XR HAND RT COMPLETE XR WRIST RT COMPLETE EXAM: XR WRIST RT COMPLETE CLINICAL HISTORY: injury, fall down stairs. TECHNIQUE: 2D digital imaging was performed. Three views of the wrist and hand. COMPARISON: CR XR WRIST RT COMPLETE from 08/05/2023 CR,XR XR HAND RT COMPLETE from 03/04/2024 FINDINGS: BONES: No acute fracture is present. No bony destructive lesion is seen. JOINTS: The carpal bones are normally aligned. SOFT TISSUE: Normal. IMPRESSION: Unremarkable radiographs of the right wrist and hand. DATA REPOSITORY: RADIATION DOSE DELIVERED:
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
[2024-03-04] MEDS: Ibuprofen 400 MG TAB PO (20:21)
[2024-03-04 20:42] VITALS: BP 126/68; PULSE 84
--- NOTE | 2024-03-04 21:22 | DI.VRAD_ITS ---
PROCEDURE INFORMATION: Exam: XR Right Hand Exam date and time: 03/04/2024 8:37 PM Age: 28 years old Clinical indication: Injury or trauma; Blunt trauma (contusions or hematomas); Hand; Right; Patient HX: Fall down stairs TECHNIQUE: Imaging protocol: Radiologic exam of the right hand. Views: 3 or more views. COMPARISON: CR XR WRIST RT COMPLETE 08/05/2023 6:02 PM FINDINGS: Bones/joints: Normal. Soft tissues: Normal. IMPRESSION: No evidence for fracture. Dictated and Authenticated by: Patricia Quinn MD. Ordering:WADE Felix MD
--- NOTE | 2024-03-04 21:23 | DI.VRAD_ITS ---
PROCEDURE INFORMATION: Exam: XR Right Wrist Exam date and time: 03/04/2024 8:38 PM Age: 28 years old Clinical indication: Injury or trauma; Blunt trauma (contusions or hematomas); Wrist; Right; Patient HX: Fall down stairs TECHNIQUE: Imaging protocol: Radiologic exam of the right wrist. Views: 3 or more views. COMPARISON: CR XR WRIST RT COMPLETE 08/05/2023 6:02 PM FINDINGS: Bones/joints: Normal. Soft tissues: Normal. IMPRESSION: No evidence for fracture. Dictated and Authenticated by: Patricia Quinn MD. Ordering:WADE Felix MD
[2024-03-04 21:44] VITALS: PULSE 76; RESP 17; O2SAT 99
--- NOTE | 2024-03-05 08:29 | NUR.NOTE ---
Reconciling the EKG orders with EKG's in [facility]. There is no EKG in [facility] and no documentation of one either. Order cancelled. Nursing Note:
== END 2024-03-04 21:48 | disposition home or self-care (01) ==
PROVIDERS: Emergency Provider Nurse Practitioner Family; PCP Nurse Practitioner Adult Health
DX: S69.81XA Other specified injuries of right wrist, hand and finger(s), initial encounter (principal); W10.8XXA Fall (on) (from) other stairs and steps, initial encounter; Y93.01 Activity, walking, marching and hiking; Y92.018 Other place in single-family (private) house as the place of occurrence of the external cause
CPT/HCPCS: 99284; 73110; 73130

== ENCOUNTER 2024-03-06 10:30 | Outpatient (CLI) | payer MEDICAID, SELFPAY ==
--- NOTE | 2024-03-06 10:24 | DI.RAD_ITS ---
Exam(s) XR HIP RT COMPLETE AP PELVIS EXAM: XR HIP RT COMPLETE AP PELVIS CLINICAL HISTORY: R hip pain after a fall W10.8XXD. TECHNIQUE: 2D digital imaging was performed of the right hip. Two images were obtained. AP pelvis a nd lateral right hip views were obtained. COMPARISON: No exams were available for comparison FINDINGS: BONES: No acute fracture is present. No bony destructive lesion is seen. There is a transitional lumb osacral vertebral body. JOINTS: No dislocation present. The hips are well maintained. The sacroiliac joints and symphysis pu bis are unremarkable. SOFT TISSUE: Normal. IMPRESSION: Unremarkable radiographs of the right hip. Unremarkable radiographs of the pelvis. DATA REPOSITORY: RADIATION DOSE DELIVERED:
== END 2024-03-06 10:50 ==
PROVIDERS: PCP Nurse Practitioner Adult Health; Visit Provider Family Medicine
DX: W10.8XXD Fall (on) (from) other stairs and steps, subsequent encounter (principal); M25.551 Pain in right hip
CPT/HCPCS: 73502

== ENCOUNTER 2024-06-02 20:37 | Emergency (ER) | payer MEDICAID, SELFPAY ==
[2024-06-02 20:40] VITALS: BP 122/82; PULSE 96; RESP 18; TEMP 36.7; O2SAT 98
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
[2024-06-02] MEDS: Ciprofloxacin/Dexameth. 7.5 ML BTL AS (21:05)
== END 2024-06-02 21:05 | disposition home or self-care (01) ==
PROVIDERS: Emergency Provider Physician Assistant; PCP Nurse Practitioner Adult Health
DX: H72.812 Multiple perforations of tympanic membrane, left ear (principal)
CPT/HCPCS: 99283

== ENCOUNTER 2024-07-20 18:07 | Emergency (ER) | payer MEDICAID, SELFPAY ==
[2024-07-20 18:36] VITALS: BP 112/75; PULSE 108; RESP 14; TEMP 36.8; O2SAT 96
[2024-07-20 20:34] VITALS: RESP 18
[2024-07-20] MEDS: Azithromycin 250 MG TAB 500 MG PO (20:55)
[2024-07-20 20:59] VITALS: BP 101/52; PULSE 72; RESP 18; O2SAT 96
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
== END 2024-07-20 21:01 | disposition home or self-care (01) ==
PROVIDERS: Emergency Provider Physician Assistant; PCP Nurse Practitioner Adult Health
DX: A28.1 Cat-scratch disease (principal); F17.210 Nicotine dependence, cigarettes, uncomplicated; F17.290 Nicotine dependence, other tobacco product, uncomplicated
CPT/HCPCS: 99283

== ENCOUNTER 2024-09-14 20:05 | Emergency (ER) | payer MEDICAID, SELFPAY ==
[2024-09-14] VITALS (12 sets, daily range): BP systolic 123; BP diastolic 86; PULSE 88–126; RESP 12–35; TEMP 35.9; O2SAT 96–100
--- NOTE | 2024-09-14 20:00 | RT.EKG_ITS ---
APPROVED REPORT Exam: Resting ECG Reason for Exam: chest pain Patient Location: E HR:100 bpm ECG Measurements Heart Rate 100 AXIS ID 98 P 68 QRSd 82 QRS 71 QT 331 T 66 QTc 427 Conclusion Sinus tachycardia, rate 100 No interval abnormalities 1mm ST depression V4 and V5, unchanged from priors No STEMI
--- NOTE | 2024-09-14 20:30 | DI.RAD_ITS ---
Exam(s) XR CHEST 2V PA LATERAL EXAM: XR CHEST 2V PA LATERAL CLINICAL HISTORY: Chest pain. TECHNIQUE: 2D digital imaging was performed. COMPARISON: CR,XR XR CHEST 2V PA LATERAL from 05/07/2023 FINDINGS: 2 views: There are chest leads in place. Heart size is normal. The mediastinum is not widened. Left lung is clear. There are slightly increased markings in the right lower lobe. Possibly early infiltrate. No pleural effusions. No pneumothorax. No fractures. IMPRESSION: Subtle increased right lower lobe markings, possibly mild infiltrate. There are no pleural effusions. DATA REPOSITORY: RADIATION DOSE DELIVERED:
[2024-09-14 20:43] LABS: Abs Immature Grans 0.08 10^3/uL (0.0-0.06); Absolute Basophil Count 0.05 10^3/uL (0.0-0.2); Absolute Eosinophil Count 0.09 10^3/uL (0.0-0.7); Absolute Lymphocyte Count 3.44 10^3/uL (1.2-3.4); Absolute Monocyte Count 0.95 10^3/uL (0.1-0.8); Basophils % 0.4 %; Eosinophils % 0.7 %; HCT 40.9 % (36.0-46.0); HGB 13.8 g/dL (11.2-15.7); Immature Grans % 0.6 %; Lymphocytes % 27.5 %; MCH 29.4 pg (27.0-33.0); MCHC 33.7 % (32.0-36.0); MCV 87 fL (80-95); MPV 10.4 fL (8.0-11.0); Monocytes % 7.6 %; Neutrophils % 63.2 %; Platelet Count 317 10^3/uL (130-400); RBC 4.69 10^6/uL (3.93-5.22); RDW 12.7 % (11.7-14.6); RDW-SD 40.2 fL; WBC 12.51 10^3/uL (4.4-10.8)
[2024-09-14 20:44] LABS: Absolute Neutrophil Count 7.91 10^3/uL (1.2-6.7)
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
[2024-09-14 20:57] LABS: ALT 28 U/L (14-59); AST 16 U/L (15-37); Albumin 4.2 g/dL (3.4-5.0); Alkaline Phosphatase 81 U/L (46-116); Anion Gap 16.1 mmol/L (3-11); BUN 3 mg/dL (7-18); Bilirubin, Total 0.2 mg/dL (0.2-1.0); CO2 21.9 mmol/L (21.0-32.0); CREATININE 0.7 mg/dL (0.55-1.02); Calcium 9.6 mg/dL (8.5-10.1); Chloride 103 mmol/L (98-107); Estimated GFR 121.49 (mL/min/1.73m2); Glucose 84 mg/dL (74-106); Magnesium 2.4 mg/dL (1.8-2.4); Potassium 3.2 mmol/L (3.5-5.1); Sodium 141 mmol/L (136-145); Total Protein 8.4 g/dL (6.4-8.2); Troponin I < 4 ng/L (<or=51)
[2024-09-14 21:13] LABS: D-Dimer 194 ng/mlFEU (<500)
[2024-09-14] MEDS: LORazepam 20 MG/10 ML VIAL IVP (21:13)
--- NOTE | 2024-09-14 21:27 | DI.VRAD_ITS ---
PROCEDURE INFORMATION: Exam: XR Chest Exam date and time: 09/14/2024 8:53 PM Age: 29 years old Clinical indication: Other: Chest pain TECHNIQUE: Imaging protocol: Radiologic exam of the chest. Views: 2 views. COMPARISON: CR XR CHEST 2V PA LATERAL 05/07/2023 7:15 PM FINDINGS: Lungs: There is no evidence of focal pulmonary consolidation. The pulmonary vasculature is normal. Pleural spaces: There is no evidence of pneumothorax. There are no pleural effusions present. Heart/Mediastinum: The cardiac silhouette is within normal limits. The mediastinum is normal. Bones/joints: The spine, sternum, ribs, and pectoral girdles show no evidence of acute abnormality Soft tissues: There are no soft tissue masses or calcifications. IMPRESSION: No active cardiopulmonary disease. Dictated and Authenticated by: Rhys Isabel MD. [facility] Alberto Curran MD
[2024-09-14] MEDS: Azithromycin 250 MG TAB 500 MG PO (21:32)
[2024-09-14 21:50] LABS: Troponin I < 4 ng/L (<or=51)
== END 2024-09-14 22:08 | disposition home or self-care (01) ==
PROVIDERS: Emergency Provider Emergency Medicine; PCP Nurse Practitioner Adult Health
DX: R07.9 Chest pain, unspecified (principal); J18.9 Pneumonia, unspecified organism; F17.210 Nicotine dependence, cigarettes, uncomplicated; F17.290 Nicotine dependence, other tobacco product, uncomplicated
CPT/HCPCS: 80053; 81025; 93005; 96374; 99285; 71046; 83735; 84484; 85025; 85379; 93010; J2060

== ENCOUNTER 2025-02-14 17:46 | Emergency (ER) | payer MEDICAID, SELFPAY ==
[2025-02-14 17:47] VITALS: BP 105/55; PULSE 146; RESP 18; TEMP 36.6; O2SAT 98
[2025-02-14 17:55] VITALS: BP 105/55; PULSE 146; RESP 18; TEMP 36.6; O2SAT 98
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
--- NOTE | 2025-02-14 18:00 | RT.EKG_ITS ---
APPROVED REPORT Exam: Resting ECG Reason for Exam: tachycardia Patient Location: E HR:115 bpm ECG Measurements Heart Rate 115 AXIS MT 97 P 65 QRSd 73 QRS 71 QT 315 T 54 QTc 435 Conclusion Sinus tachycardia...rate> 99
[2025-02-14 18:35] VITALS: BP 105/77; PULSE 113; TEMP 36.2; O2SAT 97
[2025-02-14 18:50] LABS: Abs Immature Grans 0.07 10^3/uL (0.0-0.06); HCT 40.9 % (36.0-46.0); HGB 13.8 g/dL (11.2-15.7); Immature Grans % 0.5 %; MCH 28.5 pg (27.0-33.0); MCHC 33.7 % (32.0-36.0); MCV 85 fL (80-95); MPV 10.5 fL (8.0-11.0); Platelet Count 331 10^3/uL (130-400); RBC 4.84 10^6/uL (3.93-5.22); RDW 12.3 % (11.7-14.6); RDW-SD 37.5 fL; WBC 14.62 10^3/uL (4.4-10.8)
[2025-02-14 19:14] LABS: Magnesium 2.1 mg/dL (1.6-2.6)
[2025-02-14 19:16] LABS: ALT 12 U/L (10-49); AST 20 U/L (<34); Albumin 5.2 g/dL (3.4-5.0); Alkaline Phosphatase 96 U/L (46-116); Anion Gap 11.1 mmol/L (3-11); BUN 11 mg/dL (9-23); Bilirubin, Total 0.60 mg/dL (0.2-1.2); CO2 21.9 mmol/L (20.0-31.0); Calcium 9.9 mg/dL (8.3-10.6); Chloride 102 mmol/L (98-107); Glucose 117 mg/dL (74-106); Potassium 3.7 mmol/L (3.5-5.1); Sodium 135 mmol/L (136-145); Total Protein 8.9 g/dL (5.7-8.2)
[2025-02-14 19:18] LABS: TSH (W/Ref FT4) 0.79 uIU/mL (0.55-4.78)
[2025-02-14 19:21] LABS: Troponin I < 3 ng/L (<35)
[2025-02-14 19:33] LABS: D-Dimer 579 ng/mlFEU (<500)
--- NOTE | 2025-02-14 19:45 | DI.RAD_ITS ---
Exam(s) XR CHEST 2V PA LATERAL EXAM: XR CHEST 2V PA LATERAL CLINICAL HISTORY: cough. TECHNIQUE: 2D digital imaging was performed. COMPARISON: CR,XR XR CHEST 2V PA LATERAL from 05/07/2023 CR,XR XR CHEST 2V PA LATERAL from 09/14/2024 FINDINGS: 2 views: Heart size is normal. The mediastinum is not widened. Of lung is clear. There is density in the right cardiophrenic angle which is unchanged from 09/14/2024 and most probably is extension the pericardiac fat pad. IMPRESSION: No acute pulmonary findings.No significant change compared to 09/14/2024. DATA REPOSITORY: RADIATION DOSE DELIVERED:
[2025-02-14 21:04] LABS: COVID-19 PCR Negative (Negative); RSV PCR Negative (Negative)
--- NOTE | 2025-02-14 21:13 | DI.VRAD_ITS ---
PROCEDURE INFORMATION: Exam: XR Chest Exam date and time: 02/14/2025 8:53 PM Age: 29 years old Clinical indication: Cough TECHNIQUE: Imaging protocol: Radiologic exam of the chest. Views: 2 views. COMPARISON: CR XR CHEST 2V PA LATERAL 09/14/2024 8:53 PM FINDINGS: Lungs: The lungs are clear. No consolidative radiopacities. Pleural spaces: No pleural effusion. No pneumothorax. Heart/Mediastinum: The heart is normal size. Bones/joints: Unremarkable. IMPRESSION: No acute cardiopulmonary findings. Dictated and Authenticated by: Dena Archibald MD. Orderin Hugo Zayas MD
[2025-02-14] MEDS: Azithromycin 250 MG TAB 500 MG PO (21:35)
[2025-02-14] MEDS: Albuterol HFA 8 GM 60 PUFF INH IH (21:37)
[2025-02-14 21:41] VITALS: BP 109/72; PULSE 108; RESP 20; TEMP 36.7; O2SAT 99
== END 2025-02-14 22:14 | disposition home or self-care (01) ==
PROVIDERS: Emergency Provider Physician Assistant; PCP Nurse Practitioner Adult Health
DX: J20.9 Acute bronchitis, unspecified (principal)
CPT/HCPCS: 99283; 99285; 81025; 87880; 80053; 87637; 93005; 71046; 83605; 83735; 84443; 84484; 85025; 85379; 87081; 93010